=== PATIENT | female | born 1950 | race Caucasian/White ===

== ENCOUNTER 2017-05-11 22:24 | Inpatient (IN) ==
--- NOTE | 2017-05-11 22:37 | Emergency Department Report ---
General Adult HPI - General Stated complaint: Confusion Time Seen by Provider: 05/11/17 22:25 Source: patient, family, EMS Mode of arrival: ambulatory Limitations: altered mental status - History of Present Illness HPI narrative: Patient lives at assisted living in a local intermediate, for dementia. Her has been concerned of last 24 hours that she has had worsening confusion. Patient has not been seen recently by her primary care physician, but she was seen one week ago by Dr. Elda Pradhan for generalized low back pain. Patient has been was concerned because 2 days ago the patient forgot to take her evening diazepam, and after that stayed up all night. Last night the patient did take her diazepam slit 14 hours. Since that time the patient has been having worsening confusion and mild generalized weakness. Other than chronic low back pain, the patient has no current complaint. - Related Data Home Medications Medication Instructions Recorded Confirmed Citalopram Hydrobromide [Celexa] 10 mg PO PM #0 04/30/12 05/11/17 Levothyroxine Sodium 50 mcg PO DAILY #0 07/19/12 05/11/17 OLANZapine [Olanzapine] 1 tab PO HS #0 05/21/15 05/11/17 cetirizine 10 mg tablet 10 mg PO DAILY 30 Days 05/04/17 05/11/17 cyclobenzaprine 10 mg tablet 10 mg PO HS PRN 30 Days 05/04/17 05/11/17 diazepam 2 mg tablet 2 mg PO BID 15 Days 05/04/17 05/11/17 eluxadoline 100 mg tablet 100 mg PO BID 30 Days 05/04/17 05/11/17 meloxicam 15 mg tablet 15 mg PO DAILY 30 Days 05/04/17 05/11/17 montelukast 10 mg tablet 10 mg PO HS 90 Days 05/04/17 05/11/17 propranolol 40 mg tablet 40 mg PO DAILY 30 Days 05/04/17 05/11/17 ranitidine 150 mg tablet 150 mg PO BID 30 Days 05/04/17 05/11/17 Allergies Allergy/AdvReac Type Severity Reaction Status Date / Time dextromethorphan Allergy Unknown Verified 05/11/17 23:04 guaifenesin Allergy Unknown Verified 05/11/17 23:04 hydrocodone Allergy Unknown HIVES, Verified 05/11/17 23:04 SKIN RASH oxaprozin Allergy Unknown Verified 05/11/17 23:04 paromomycin Allergy Unknown Verified 05/11/17 23:02 potassium guaiacolsulfonate Allergy Unknown Verified 05/11/17 23:04 propoxyphene Allergy Unknown Verified 05/11/17 23:04 [From Darvocet-N] dextromethorphan HBr Allergy Unknown Uncoded 05/11/17 23:02 propoxyphene napsylate Allergy Unknown Uncoded 05/11/17 23:02 Review of Systems All systems: reviewed and negative except as stated PFSH Patient Stated Medical History Cataracts Yes Hypertension Yes Other Respiratory Yes: ALLERGIES Gastroesophageal Reflux Yes Disease Other GI Yes: IBS Other Musculoskeletal Yes: DEGENERATIVE JOINT DISEASE OF CERVICAL SPINE Schizophrenia Yes Clinic Medical History (Last Reviewed 05/05/17 @ 14:50 by Elda Pradhan MD) Allergic rhinitis (Chronic Medical) Benign hypertension (Chronic Medical) Cataract (Chronic Medical) Degenerative joint disease of cervical spine (Chronic Medical) GERD (gastroesophageal reflux disease) (Chronic Medical) Goiter (Chronic Medical) Hypothyroidism (Chronic Medical) Irritable bowel syndrome (Chronic Medical) Lumbago (Chronic Medical) Schizophrenia (Chronic Medical) Surgical History: L TKA; cataract; Family History: Family History (Last Reviewed 05/05/17 @ 14:50 by Elda Pradhan MD) Mother Breast CA Mother Cervical cancer Liver cancer HTN (hypertension) Depression Cancer of spine Colon cancer - Social History Smoking status: Never smoker Physical Exam - Limitations Limitations: no limitations - General General appearance: alert (although somewhat confused) - Normal Exams: Head:: Normocephalic without trauma Eyes:: Pupils are PERRLA w/ EOMI, No scleral icterus, irritation, or foreign bodies noted ENMT:: No facial trauma, nasal exudates, pharyngeal erythema, or exudates are noted Neck:: Full range of motion, without adenopathy, JVD, bruits or thyromegaly Chest/Respirations:: Clear all fuchs, with good airflow, and symmetry bilaterally Cardiovascular:: Regular rate and rhythm, without murmur or gallop, Pulses 2+ all extremities, capillary refill, <2 seconds all extremities Abdomen:: Bowel sounds positive, soft, non-tender, non-distended, no hepatosplenomegaly, masses or bruits noted Lymphatic:: No lymphadenopathy, or lymphedema noted Musculoskeletal:: No tenderness, or deformity noted, good range of motion, all extremities Integumentary:: No rashes, hives, or bruising noted, hair and nails, without abnormality Neurological:: Patient is alert, and oriented, cranial nerves, motor/sensory/ cerebellar, exams w/o gross deficits, to observation Psychiatric:: Patient exhibits, appropriate attention, emotion and affect Course Vital Signs Temperature 98.0 F 05/11/17 22:24 Pulse Rate 69 05/11/17 22:24 Respiratory Rate 12 05/11/17 22:24 Blood Pressure 174/84 H 05/11/17 22:24 Pulse Oximetry 97 05/11/17 22:24 Temperature 98.0 F 05/11/17 22:24 Pulse Rate 69 05/12/17 00:00 Respiratory Rate 12 05/11/17 22:24 Blood Pressure 177/84 H 05/12/17 00:00 Pulse Oximetry 98 05/12/17 00:00 Medical Decision Making - MDM Narrative Medical decision making narrative: Patient appears slightly dehydrated, with mild dry lips. Patient is given 1 L normal saline IV fluid bolus CBC - n CMP - n TSH - mildly elevated, consistent with the patient's diagnoses UA - n In speaking with the patient's family, they're quite concerned because the patient has had 3 successive nights of hallucinations, paranoid thinking, and wandering confusion. Patient lives with her alone, and he does not feel that she is safe at night any longer. [facility] nurse has evaluated the patient for possible [facility] admission - patient has been accepted to [facility] to Dr. Theron Moreno or schizophrenia unspecified/other psychotic disorder. - Lab Data Result diagrams: 05/11/17 10:50 05/11/17 10:50 Lab Results 05/11/17 05/11/17 05/11/17 Range/Units 10:50 10:50 23:23 WBC 10.7 (4.5-11.0) T/MM3 RBC 3.81 L (4.00-5.20) M/MM3 Hgb 12.2 (12-16) GM/DL Hct 37.0 (36-46) % MCV 97.1 (80-100) UM3 MCH 32.0 (26-34) UUG MCHC 33.0 (31-37) GM/DL RDW Std Deviation 44.8 (36.9-50.2) FL Plt Count 299 (130-400) T/MM3 MPV 9.5 (9.4-12.4) UM3 Immature Gran % (Auto) 0.3 (0.0-0.5) % Neut % (Auto) 50.1 (33-66) % Lymph % (Auto) 38.8 (23-45) % Thayer % (Auto) 9.0 (0-9.0) % Eos % (Auto) 0.9 (0-4) % Baso % (Auto) 0.9 (0-2) % Neut # 5.3 (1.8-7.7) T/MM3 Lymph # 4.1 (1-4.8) T/MM3 Thayer # 1.0 H (0-0.8) T/MM3 Eos # 0.1 (0-0.5) T/MM3 Baso # 0.1 (0-0.2) T/MM3 Abs Immat Gran (auto) 0.03 (0.00-0.03) T/MM3 Turbidity < 20 (0-20) Sodium 134 (134-144) MEQ/L Potassium 3.9 (3.6-5) MEQ/L Chloride 100 (98-107) MEQ/L Carbon Dioxide 26 (22-30) MEQ/L Anion Gap 8 (5-15) MEQ/L BUN 18.0 H (7-17) MG/DL Creatinine 1.0 (0.7-1.2) MG/DL GFR Calculation 55 BUN/Creatinine Ratio 18 (6-26) RATIO Glucose 107 (65-110) MG/DL Calculated Osmolality 260 L (261-280) MOSM/KG Calcium 8.9 (8.4-10.2) MG/DL Total Bilirubin 0.40 (0.20-1.30) MG/DL Conjugated Bilirubin 0.00 (0.00-0.30) MG/DL Unconjugated Bilirubin 0.10 (0.00-11.10) MG/DL Icterus Index < 2 (0-7) AST 24 (14-36) U/L ALT 37 (9-52) U/L Alkaline Phosphatase 56 (38-126) U/L Total Protein 6.3 (6.3-8.2) G/DL Albumin 3.9 (3.5-5.0) G/DL Globulin 2.4 (2.4-3.6) G/DL Albumin/Globulin Ratio 1.6 (1.1-2.2) RATIO TSH 6.21 H (0.47-4.68) MIU/L Specimen Hemolysis < 15 (0-25) Ur Collection Type Urine, clean catch Urine Color Yellow (YELLOW) Urine Clarity Clear Urine pH 5.5 (5.0-8.0) Ur Specific [place]well <=1.005 L (1.015-1.025) Urine Protein Negative (NEGATIVE) Urine Glucose (UA) Negative (NEGATIVE) Urine Ketones Negative (NEGATIVE) Urine Occult Blood Negative (NEGATIVE) Urine Nitrate Negative (NEGATIVE) Urine Bilirubin Negative (NEGATIVE) Urine Urobilinogen 0.2 (NORMAL) EU/DL Ur Leukocyte Esterase Negative (NEGATIVE) Urinalysis Comment Microscopic not ind. Disposition Clinical Impression: Schizophrenia spectrum disorder with psychotic disorder type not yet determined Disposition: 65 To [facility] Condition: Stable Prescriptions: No Action Citalopram Hydrobromide [Celexa] 10 mg PO PM #0 Levothyroxine Sodium 50 mcg PO DAILY #0 OLANZapine [Olanzapine] 1 tab PO HS #0 diazepam 2 mg tablet 2 mg PO BID 15 Days ranitidine 150 mg tablet 150 mg PO BID 30 Days cyclobenzaprine 10 mg tablet 10 mg PO HS PRN 30 Days PRN Reason: Spasms meloxicam 15 mg tablet 15 mg PO DAILY 30 Days eluxadoline 100 mg tablet 100 mg PO BID 30 Days montelukast 10 mg tablet 10 mg PO HS 90 Days cetirizine 10 mg tablet 10 mg PO DAILY 30 Days propranolol 40 mg tablet 40 mg PO DAILY 30 Days Referrals: Leesa Wilde DO [Primary Care Provider] - - Seen By: physician
[2017-05-11] MEDS ORDERED: NS 1,000 ML IV ONE (22:53)
[2017-05-11] MEDS ORDERED: SALINE FLUSH 10ml SYRINGE IVF PRN (23:03)
[2017-05-12] MEDS ORDERED: HALOPERIDOL 0.5 MG TABLET PO PRN (03:46)
[2017-05-12] MEDS ORDERED: HALOPERIDOL 5 MG/ML INJECTION IM PRN (03:46)
[2017-05-12] MEDS ORDERED: LORazepam 0.5 MG TABLET PO PRN (03:46)
[2017-05-12 06:51] VITALS: BMI 28.5
[2017-05-12] MEDS: LEVOTHYROXINE 50 MCG TABLET PO SCH (07:53)
[2017-05-12] MEDS: MELOXICAM 15 MG TABLET PO SCH (08:51)
[2017-05-12] MEDS: PROPRANOLOL 20 MG TABLET PO SCH (08:51)
[2017-05-12] MEDS: CETIRIZINE 10 MG TABLET PO SCH (08:52)
[2017-05-12] MEDS ORDERED: DIAZEPAM 2 MG TABLET PO SCH (09:00)
--- NOTE | 2017-05-12 09:30 | History & Physical Report ---
<Saray Pulliam V - Last Filed: 05/12/17 09:27> History of Present Illness Date: 05/12/17 Chief complaint: Auditory hallucinations HPI: Tonia is a pleasant 66-year-old female who presented to the emergency room last evening for acute evaluation of mental status changes. She reports that for the last 2-3 days. She has had auditory hallucinations, thinking that there were people outside her apartment in the hallway talking about her. She reports that she was concerned that the police were there and that they will to take her to shelter. She does have a known history of schizophrenia. Given concern for status changes. brought patient to the emergency room for further acute evaluation and treatment. Basic laboratory studies were obtained. CBC was found to be unremarkable. Chemistry panel unremarkable. Urinalysis was normal. Emergency room physician did report that patient had missed. Diazepam medications over the last 2 days, which consequently kept patient up all night. Given these acute changes. Patient was evaluated by the [facility] unit and was accepted for admission for further psychiatric evaluation and treatment. Tonia is seen this morning for initial medical consultation. She is alert and pleasant. She does verbalize auditory hallucinations and recognizes that they are abnormal. She also reports has been having lumbar back pain since December. She was seen by Dr. Pradhan on May 02, 2017. It was recommended the patient obtain an MRI and possible physical therapy for ongoing treatment. Review of Systems All systems: reviewed and no additional remarkable complaints except as stated - Musculoskeletal Musculoskeletal: Present: as per HPI, back pain (lumbar) - Psychiatric Psychiatric: Present: as per HPI, auditory hallucinations, behavioral changes [facility] Patient Stated Medical History Allergic rhinitis ALLERGIES Chronic colitis, IBS Diabetes Benign hypertension Cataract Degenerative joint disease of cervical spine GERD (gastroesophageal reflux disease) Goiter Hypothyroidism Lumbago Schizophrenia Migraine headaches History of dysplastic tubular adenoma Surgical History: Left total knee. Right total knee. . Colonoscopy-. Cataract extraction Family History: Father- colon cancer, lung cancer Mother- Cervical cancer Liver cancer HTN (hypertension) Depression Cancer of spine Colon cancer - Social History Smoking status: Never smoker Substance use type: does not use Alcohol intake frequency: does not drink Household members: spouse Current residence: Apartment/Private Home Social history: PCP- Dr Wilde Medications Home Medications Medication Instructions Recorded Confirmed Type Citalopram Hydrobromide [Celexa] 10 mg PO PM #0 04/30/12 05/11/17 History Levothyroxine Sodium 50 mcg PO DAILY #0 07/19/12 05/11/17 History OLANZapine [Olanzapine] 1 tab PO HS #0 05/21/15 05/11/17 History cetirizine 10 mg tablet 10 mg PO DAILY 30 Days 05/04/17 05/11/17 History cyclobenzaprine 10 mg tablet 10 mg PO HS PRN 30 Days 05/04/17 05/11/17 History diazepam 2 mg tablet 1 mg PO BID 15 Days 05/04/17 05/12/17 History eluxadoline 100 mg tablet 100 mg PO BID 30 Days 05/04/17 05/11/17 History meloxicam 15 mg tablet 15 mg PO DAILY 30 Days 05/04/17 05/11/17 History montelukast 10 mg tablet 10 mg PO HS 90 Days 05/04/17 05/11/17 History propranolol 40 mg tablet 40 mg PO DAILY 30 Days 05/04/17 05/11/17 History ranitidine 150 mg tablet 150 mg PO BID 30 Days 05/04/17 05/11/17 History Lactobacillus Acidophilus 1 each PO DAILY 05/12/17 05/12/17 History [Probiotic] Allergies Allergy/AdvReac Type Severity Reaction Status Date / Time dextromethorphan Allergy Unknown Verified 05/11/17 23:04 guaifenesin Allergy Unknown Verified 05/11/17 23:04 hydrocodone Allergy Unknown HIVES, Verified 05/11/17 23:04 SKIN RASH oxaprozin Allergy Unknown Verified 05/11/17 23:04 paromomycin Allergy Unknown Verified 05/11/17 23:02 potassium guaiacolsulfonate Allergy Unknown Verified 05/11/17 23:04 propoxyphene Allergy Unknown Verified 05/11/17 23:04 [From Darandreeat-N] dextromethorphan HBr Allergy Unknown Uncoded 05/11/17 23:02 propoxyphene napsylate Allergy Unknown Uncoded 05/11/17 23:02 Exam Vital Signs: Temperature 97.0 F 05/12/17 07:57 Pulse Rate 80 05/12/17 07:57 Respiratory Rate 18 05/12/17 07:57 Blood Pressure 142/92 H 05/12/17 07:57 Pulse Oximetry 97 05/12/17 07:57 Oxygen Delivery Method Room Air Height: 1.42 m Weight: 57.7 kg Body Mass Index: 28.5 - Constitutional Present: no acute distress, well nourished, well developed - Routine HEENT Exam Head: Present: normocephalic, atraumatic Eye: Present: EOMI, PERRL ENT: Present: mucous membranes moist, dentition normal - Routine Neck Exam Present: supple, full ROM - Routine Respiratory Exam Present: CTA bilaterally. Absent: wheezes - Routine Cardiovascular Exam Present: RRR, S1, S2, no murmur. Absent: murmur - Routine Abdominal Exam Present: soft, normoactive bowel sounds, non distended. Absent: tenderness - Routine Extremities Exam Present: no edema, non tender, full ROM, normal capillary refill - Routine Back/Spine/Pelvis Exam Back/Spine: Present: full ROM, paraspinal tenderness (lumbar) - Routine Skin Exam Present: dry, warm - Routine Neurological Exam Present: alert, oriented X3, CN II-XII intact, moving all extremities, vision grossly intact, hearing grossly intact, normal speech. Absent: sensory deficit , motor deficit - Routine Psychiatric Exam Present: normal affect, cooperative Results - Labs CBC & Chem 7: 05/11/17 22:50 05/11/17 22:50 Assessment and Plan (1) Schizophrenia spectrum disorder with psychotic disorder type not yet determined Current visit: Yes Status: Acute (2) Auditory hallucinations Current visit: Yes Status: Acute Assessment and Plan: Assessment Benign essential Hypertension ALLERGIC rhinitis Asthma GERD Diabetes Hyperlipidemia Hypothyroidism. Irritable bowel syndrome with irritable colitis-chronic Osteoarthritis. History of migraine headaches Plan Agree with admission to the [facility] unit for further psychiatric evaluation and treatment Appears that diabetes is diet controlled. Monitor Accu-Cheks as needed. Monitor blood pressure, this morning 142/92. Continue with Inderal Recommend continuing Mobic 15 milligrams daily for ongoing back pain. Continue Viberzi for chronic IBS symptoms Encourage patient to participate in unit activities and provide a safe environment. At time of discharge medical care will return to primary care provider, Dr. Wilde The hospitalist services will continue to follow patient medically manage her existing comorbidities during her stay in the [facility] unit Sepsis Assessment - Evaluation Sepsis screening result: No Definite Risk Hospital Course Summary Disclaimer: The visit summary below is not to be considered part of the above Progress Note. Hospital Course: 07/27/17 inital admission Agree with admission to the [facility] unit for further psychiatric evaluation and treatment Appears that diabetes is diet controlled. Monitor Accu-Cheks as needed. Monitor blood pressure, this morning 142/92. Continue with Inderal Recommend continuing Mobic 15 milligrams daily for ongoing back pain. Continue Viberzi for chronic IBS symptoms Encourage patient to participate in unit activities and provide a safe environment. At time of discharge medical care will return to primary care provider, Dr. Wilde The hospitalist services will continue to follow patient medically manage her existing comorbidities during her stay in the [facility] <RoseLesley L - Last Filed: 05/12/17 18:12> History of Present Illness Date: 05/12/17 [facility] Patient Stated Medical History Cataracts Yes Hypertension Yes Other Respiratory Yes: ALLERGIES Gastroesophageal Reflux Yes Disease Other GI Yes: IBS Other Musculoskeletal Yes: DEGENERATIVE JOINT DISEASE OF CERVICAL SPINE Schizophrenia Yes Clinic Medical History (Last Updated 05/12/17 @ 10:03 by Saray Pulliam APRN) Allergic rhinitis (Chronic Medical) Benign hypertension (Chronic Medical) Cataract (Chronic Medical) Degenerative joint disease of cervical spine (Chronic Medical) GERD (gastroesophageal reflux disease) (Chronic Medical) Goiter (Chronic Medical) Hypothyroidism (Chronic Medical) Irritable bowel syndrome (Chronic Medical) Lumbago (Chronic Medical) Schizophrenia (Chronic Medical) Family History: Family History (Last Reviewed 05/05/17 @ 14:50 by Elda Pradhan MD) Mother Breast CA Mother Cervical cancer Liver cancer HTN (hypertension) Depression Cancer of spine Colon cancer Exam Vital Signs: Temperature 97.2 F 05/12/17 15:00 Pulse Rate 63 05/12/17 15:00 Respiratory Rate 20 05/12/17 15:00 Blood Pressure 150/78 H 05/12/17 15:00 Pulse Oximetry 97 05/12/17 15:00 Oxygen Delivery Method Room Air Height: 1.42 m Weight: 57.7 kg Results - Labs CBC & Chem 7: 05/11/17 22:50 05/11/17 22:50 Assessment and Plan (1) Schizophrenia spectrum disorder with psychotic disorder type not yet determined Current visit: Yes Status: Acute (2) Auditory hallucinations Current visit: Yes Status: Acute Assessment and Plan: I have independently evaluated and examined this patient. I reviewed the chart, the patient's history, and the [employer]PERATOR/PA's documented findings as above. We discussed and formulated the assessment and plan as above with additions as below: Mrs. Canales was seen resting in the day room. She denied any concerns at the time of my assessment but acknowledged that she has been hearing voices as previously noted. She describes some radicular pain in the left leg to the foot and recently had LS spine films done by Dr. Pradhan demonstrating degenerative changes in the lower thoracic spine and retrolisthesis at L4-L5. MRI is being considered. Patient denies difficulty ambulating as a result of the left leg pain and has not had falls. Examination demonstrates the patient to be alert and cooperative. Respirations are nonlabored in cardiac rhythm regular. Neurological exam is nonfocal his previously described without sensory loss in the left ankle or foot. Motor tone is normal and power is symmetric in the lower extremities. No tremors are present. No additional recommendations at this time. We'll attempt to clarify if A1c has been done in the recent past at [facility]. Hospital Course Summary Disclaimer: The visit summary below is not to be considered part of the above Progress Note.
[2017-05-12] MEDS ORDERED: PNEUMOCOCCAL 23 VACCINE 0.5ml INJECTION IM ONE (12:15)
[2017-05-12] MEDS: RANITIDINE 150 MG TABLET PO SCH ×2 (12:21→20:22)
[2017-05-12] MEDS: ELUXADOLINE 100 MG PO SCH ×2 (12:22→20:24)
[2017-05-12] MEDS ORDERED: PNEUMOCOCCAL VAC ADMIN CHARGE INJ ONE (16:00)
--- NOTE | 2017-05-12 18:59 | 24 Hour Neuropsychiatic Eval ---
Date of Admission: 05/12/17 03:19 Chief complaint: "I was paranoid" History of Present Illness: HPI: 66 Y/O CF with a hx of delusional disorder, depression and anxiety admitted for increasing confusion and some paranoia. Pt states recently she has been having a hard time sleeping and felt the police were "coming to arrest me". She states this is now improved although still there. She reports some depression but feels it is mild. Denies any S/I. STRESSORS: Pt states she ran out of her Valium over the last couple of days and feels this contributed to her symptoms. PSYCH ROS: Pt reports feeling depressed but feels it is mild. She reports her paranoia is her biggest issue and states she feels it is now improving. She denies any S/I or AH. Denies any hx of lan. PAST PSYCH: Pt states she has had 2 previous admits the most recent was 8 years ago in [place] for similar symptoms. 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 She denies ever trying to harm herself. She is currently on Zyprexa, Valium and Celexa. [facility] Patient Stated Medical History Cataracts Yes Hypertension Yes Other Respiratory Yes: ALLERGIES Gastroesophageal Reflux Yes Disease Other GI Yes: IBS Other Musculoskeletal Yes: DEGENERATIVE JOINT DISEASE OF CERVICAL SPINE Schizophrenia Yes Clinic Medical History (Last Updated 05/12/17 @ 10:03 by Saray Pulliam APRN) Allergic rhinitis (Chronic Medical) Benign hypertension (Chronic Medical) Cataract (Chronic Medical) Degenerative joint disease of cervical spine (Chronic Medical) GERD (gastroesophageal reflux disease) (Chronic Medical) Goiter (Chronic Medical) Hypothyroidism (Chronic Medical) Irritable bowel syndrome (Chronic Medical) Lumbago (Chronic Medical) Schizophrenia (Chronic Medical) Surgical History: Left total knee. Right total knee. . Colonoscopy-. Cataract extraction Family History: Family History (Last Reviewed 05/05/17 @ 14:50 by Elda Pradhan MD) Mother Breast CA Mother Cervical cancer Liver cancer HTN (hypertension) Depression Cancer of spine Colon cancer - Social History Smoking status: Never smoker Current residence: Apartment/Private Home Review of Systems - Psychiatric Psychiatric: Present: behavioral changes, depression, paranoia Mental Status Exam Vitals: Last Vital Signs Temp 97.2 F 05/12/17 15:00 Pulse 63 05/12/17 15:00 Resp 20 05/12/17 15:00 BP 150/78 H 05/12/17 15:00 Pulse Ox 97 05/12/17 15:00 Height: 1.42 m Weight: 57.7 kg - Mental Status Exam Muscle Strength/Tone: Normal Dressing: Casual Grooming: Good Attitude: Cooperative Motor Activity: Normal Eye Contact: Good Speech: Normal Volume: Normal Rhythm: Appropriate Rhythm Orientation: Oriented X4 Mood: Neutral Affect: Sad Rate of Thoughts: Delayed Thought Organization: [place] Associations: Intact Abstract Reasoning: Poor abstract reasoning Thought Content: Paranoia Perception/Psychotic: Hx psychosis, not current Fund of Knowledge: Poor fund of knowledge Memory: Poor-immediate Suicidal Ideation: None Homicidal Ideation: None Insight: Fair Judgement: Fair Impulse Control: Fair - Laboratory Result Diagrams: 05/11/17 22:50 05/11/17 22:50 Assessment and Plan (1) Delusional disorder Current visit: Yes Status: Acute (2) MDD (major depressive disorder), recurrent episode, moderate Current visit: Yes Status: Acute (3) Intellectual disability Problem details: Mild Current visit: Yes Status: Acute Will continue home meds and increase Zyprexa to 10mg at HS
[2017-05-12] MEDS: ACETAMINOPHEN 325 MG TABLET PO PRN (19:28)
[2017-05-12] MEDS: MONTELUKAST 10 MG TABLET PO SCH ×3 (19:52→21:39)
[2017-05-12] MEDS: DIAZEPAM 2 MG TABLET PO SCH (20:23)
[2017-05-12] MEDS: OLANZapine 10 MG TABLET PO SCH (20:23)
[2017-05-12] MEDS: CITALOPRAM 10 MG TABLET PO SCH (20:23)
[2017-05-13] MEDS: LEVOTHYROXINE 50 MCG TABLET PO SCH (06:41)
[2017-05-13] MEDS: RANITIDINE 150 MG TABLET PO SCH ×2 (10:59→19:52)
[2017-05-13] MEDS: DIAZEPAM 2 MG TABLET PO SCH ×2 (10:59→19:51)
[2017-05-13] MEDS: CETIRIZINE 10 MG TABLET PO SCH (10:59)
[2017-05-13] MEDS: MELOXICAM 15 MG TABLET PO SCH (11:00)
[2017-05-13] MEDS: ELUXADOLINE 100 MG PO SCH ×2 (11:01→19:53)
[2017-05-13] MEDS: LIDOCAINE 5% PATCH TOP SCH (11:02)
[2017-05-13] MEDS: PROPRANOLOL 20 MG TABLET PO SCH (11:31)
--- NOTE | 2017-05-13 11:54 | XRay Report ---
INDICATION: mental status change PROCEDURE: CHEST 2-VIEWS UPRIGHT (PA & LAT) Encounter: Initial COMPARISON: June 13, 2009 FINDINGS: The lungs are clear without evidence of focal abnormal airspace opacity. There is no pleural effusion or pneumothorax. The heart size, mediastinal contours and pulmonary vascularity are within normal limits. There is no significant skeletal abnormality. IMPRESSION: No acute cardiopulmonary disease. .
--- NOTE | 2017-05-13 11:57 | CT Scan Report ---
Indication: mental status change PROCEDURE: CT head/brain wo con: Encounter: Initial Comparison: None Technique: Axial CT images through the head were performed without contrast. Iterative Reconstruction dose reducing technique was utilized. FINDINGS: The ventricles are of normal size, shape, and contour for the patient's age. There are scattered areas of low attenuation in the white matter which most likely represent changes from chronic microvascular ischemia. The brainstem, cerebellum, and cerebral hemispheres otherwise have a normal morphology and CT attenuation. There is no evidence of midline displacement. No hemorrhage, signs of acute territorial stroke, mass effect, mass lesions, or edema is evident. The visualized portions of the skull base, midface, and calvarium demonstrate no abnormality. The paranasal sinuses are well aerated and free of significant disease. The tympanic and mastoid cavities appear normal. IMPRESSION: No acute intracranial abnormality or hemorrhage. .
[2017-05-13] MEDS: ACETAMINOPHEN 325 MG TABLET PO PRN (16:39)
--- NOTE | 2017-05-13 16:55 | Neuropsych Progress Note ---
[facility] Subjective Date: 05/13/17 - Sujective/Severity of Illness Medications: Acetaminophen (Tylenol) 650 mg PO Q5H PRN PRN Reason: Pain Last Admin: 05/13/17 16:39 Dose: 650 mg Cetirizine HCl (Zyrtec) 10 mg PO DAILY [facility] Last Admin: 05/13/17 10:59 Dose: 10 mg Citalopram Hydrobromide (Celexa) 10 mg PO PM [facility] Last Admin: 05/12/17 20:23 Dose: 10 mg Diazepam (Valium) 1 mg PO BID [facility] Last Admin: 05/13/17 10:59 Dose: 1 mg Haloperidol (Haldol) 0.5 mg PO Q6H PRN PRN Reason: Extreme agitation Haloperidol Lactate (Haldol) 0.5 mg IM Q6H PRN PRN Reason: Extreme agitation Levothyroxine Sodium (Synthroid) 50 mcg PO ACB [facility] Last Admin: 05/13/17 06:41 Dose: 50 mcg Lidocaine (Lidoderm) 1 patch TOP DAILY [facility] Last Admin: 05/13/17 11:02 Dose: 1 patch Lidocaine HCl/Dextrose (Lidoderm Patch Removal) 1 removal TOP 2099 [facility] Lorazepam (Ativan) 0.5 mg PO Q6H PRN PRN Reason: Extreme agitation Lorazepam (Ativan Inj) 0.5 mg IM Q6H PRN PRN Reason: Extreme agitation Meloxicam (Mobic) 15 mg PO DAILY [facility] Last Admin: 05/13/17 11:00 Dose: 15 mg Montelukast Sodium (Singulair) 10 mg PO HS [facility] Last Admin: 05/12/17 21:39 Dose: Not Given --Pom--(Eluxadoline ([Viberzi] 100 Mg)) 100 mg PO BID [facility] Last Admin: 05/13/17 11:01 Dose: 100 mg Olanzapine (Zyprexa) 10 mg PO 2100 [facility] Last Admin: 05/12/17 20:23 Dose: 10 mg Propranolol HCl (Inderal) 40 mg PO DAILY [facility] Last Admin: 05/13/17 11:31 Dose: 40 mg Ranitidine HCl (Zantac) 150 mg PO BID [facility] Last Admin: 05/13/17 10:59 Dose: 150 mg Subjective: Pt seen and chart examined. Nursing reports pt is doing well. Sleeping well and has a good appetite. On face to face the pt states she is feeling better. Feels back to baseline. Mood improved and no psychotic symptoms. Tolerating meds. Denies S/I. Start Time: 16:00 Stop Time: 16:15 Mental Status Exam Vitals: Last Vital Signs Temp 97.3 F 05/13/17 16:39 Pulse 71 05/13/17 16:39 Resp 16 05/13/17 16:39 BP 162/76 H 05/13/17 16:39 Pulse Ox 98 05/13/17 16:39 Height: 1.42 m Weight: 57.6 kg - Mental Status Exam Muscle Strength/Tone: Normal Dressing: Casual Grooming: Good Attitude: Cooperative Motor Activity: Normal Eye Contact: Good Speech: Normal Volume: Normal Rhythm: Appropriate Rhythm Orientation: Oriented X4 Mood: Neutral Rate of Thoughts: Delayed Thought Organization: [place] Associations: Intact Abstract Reasoning: Poor abstract reasoning Thought Content: Paranoia Perception/Psychotic: Hx psychosis, not current Fund of Knowledge: Poor fund of knowledge Memory: Poor-immediate Suicidal Ideation: None Homicidal Ideation: None Insight: Fair Judgement: Fair Impulse Control: Fair - Laboratory Result Diagrams: 05/11/17 22:50 05/11/17 22:50 Assessment and Plan (1) Delusional disorder Current visit: Yes Status: Acute (2) MDD (major depressive disorder), recurrent episode, moderate Current visit: Yes Status: Acute (3) Intellectual disability Problem details: Mild Current visit: Yes Status: Acute Hospital Course Summary Disclaimer: The visit summary below is not to be considered part of the above Progress Note. Hospital Course: 05/12/17 inital admission Agree with admission to the [facility] for further psychiatric evaluation and treatment Appears that diabetes is diet controlled. Monitor Accu-Cheks as needed. Monitor blood pressure, this morning 142/92. Continue with Inderal Recommend continuing Mobic 15 milligrams daily for ongoing back pain. Continue Viberzi for chronic IBS symptoms Encourage patient to participate in unit activities and provide a safe environment. At time of discharge medical care will return to primary care provider, Dr. Wilde The hospitalist services will continue to follow patient medically manage her existing comorbidities during her stay in the [facility] 05/13/17 16:54 Continue current care
[2017-05-13] MEDS: OLANZapine 10 MG TABLET PO SCH (19:51)
[2017-05-13] MEDS: MONTELUKAST 10 MG TABLET PO SCH (19:52)
[2017-05-13] MEDS: LIDOCAINE PATCH REMOVAL TOP SCH (19:53)
[2017-05-13] MEDS: CITALOPRAM 10 MG TABLET PO SCH (19:54)
--- NOTE | 2017-05-13 20:28 | Progress Note ---
Subjective: Patient seen briefly in the day room. She reports doing well. Objective Vital signs: Temperature 97.1 F 05/13/17 19:20 Pulse Rate 76 05/13/17 19:20 Respiratory Rate 16 05/13/17 19:20 Blood Pressure 133/72 05/13/17 19:20 Pulse Oximetry 97 05/13/17 19:20 Oxygen Delivery Method Room Air NAD, cooperative, pleasant Blood pressures earlier today 172/92, 162/76 Weight: 57.6 kg Results - Labs CBC & Chem 7: 05/11/17 22:50 05/11/17 22:50 Labs: A1c 5.3, B-12 310, folic acid 16.2, TSH 6.21, RPR negative. Lipids pending Assessment and Plan (1) Schizophrenia spectrum disorder with psychotic disorder type not yet determined Current visit: Yes Status: Acute (2) Auditory hallucinations Current visit: Yes Status: Acute Assessment and Plan: Assessment: Schizophrenia Auditory hallucinations Benign essential Hypertension Low vitamin B-12 level Asthma GERD Diabetes Hyperlipidemia Hypothyroidism. Irritable bowel syndrome with irritable colitis-chronic Osteoarthritis. History of migraine headaches Pressures modestly elevated until this afternoon-continue to follow, currently not on medication for hypertension. May require initiation of therapy if systolic blood pressures continues to run above 150 on a regular basis. Blood pressure appears to be well-controlled on review of recent outpatient records. TSH slightly increased, was within normal limits when checked as an outpatient in November of this year and last April. No modification in levothyroxine dose at this time. B 12 level low-methylmalonic acid to be drawn and oral B-12 replacement to be started. A1c normal-does not require monitoring of blood sugars. Patient advised of lab findings. Sepsis Assessment - Evaluation Sepsis screening result: No Definite Risk Hospital Course Summary Disclaimer: The visit summary below is not to be considered part of the above Progress Note. Hospital Course: 05/12/17 inital admission Agree with admission to the [facility] for further psychiatric evaluation and treatment Appears that diabetes is diet controlled. Monitor Accu-Cheks as needed. Monitor blood pressure, this morning 142/92. Continue with Inderal Recommend continuing Mobic 15 milligrams daily for ongoing back pain. Continue Viberzi for chronic IBS symptoms Encourage patient to participate in unit activities and provide a safe environment. At time of discharge medical care will return to primary care provider, Dr. Wilde The hospitalist services will continue to follow patient medically manage her existing comorbidities during her stay in the [facility] 05/13/17 16:54 Continue current care 05/13/17 20:38-Rose Pressures modestly elevated until this afternoon-continue to follow, currently not on medication for hypertension. May require initiation of therapy if systolic blood pressures continues to run above 150 on a regular basis. Blood pressure appears to be well-controlled on review of recent outpatient records. TSH slightly increased, was within normal limits when checked as an outpatient in November of this year and last April. No modification in levothyroxine dose at this time. B 12 level low-methylmalonic acid to be drawn and oral B-12 replacement to be started. A1c normal-does not require monitoring of blood sugars.
[2017-05-14] MEDS: LEVOTHYROXINE 50 MCG TABLET PO SCH (05:38)
[2017-05-14] MEDS: ELUXADOLINE 100 MG PO SCH ×2 (09:17→20:08)
[2017-05-14] MEDS: CETIRIZINE 10 MG TABLET PO SCH (09:18)
[2017-05-14] MEDS: RANITIDINE 150 MG TABLET PO SCH ×2 (09:18→20:07)
[2017-05-14] MEDS: CYANOCOBALAMIN (B-12) 500mcg TABLET PO SCH (09:19)
[2017-05-14] MEDS: DIAZEPAM 2 MG TABLET PO SCH ×2 (09:20→20:07)
[2017-05-14] MEDS: MELOXICAM 15 MG TABLET PO SCH (09:21)
[2017-05-14] MEDS: PROPRANOLOL 20 MG TABLET PO SCH (09:21)
[2017-05-14] MEDS: LIDOCAINE 5% PATCH TOP SCH (09:21)
--- NOTE | 2017-05-14 11:06 | Neuropsych Progress Note ---
[facility] Subjective Date: 05/14/17 - Sujective/Severity of Illness Medications: Acetaminophen (Tylenol) 650 mg PO Q5H PRN PRN Reason: Pain Last Admin: 05/13/17 16:39 Dose: 650 mg Cetirizine HCl (Zyrtec) 10 mg PO DAILY [facility] Last Admin: 05/14/17 09:18 Dose: 10 mg Citalopram Hydrobromide (Celexa) 10 mg PO PM [facility] Last Admin: 05/13/17 19:54 Dose: 10 mg Cyanocobalamin (Vit. B-12) 1,000 mcg PO DAILY [facility] Last Admin: 05/14/17 09:19 Dose: 1,000 mcg Diazepam (Valium) 1 mg PO BID [facility] Last Admin: 05/14/17 09:20 Dose: 1 mg Haloperidol (Haldol) 0.5 mg PO Q6H PRN PRN Reason: Extreme agitation Haloperidol Lactate (Haldol) 0.5 mg IM Q6H PRN PRN Reason: Extreme agitation Levothyroxine Sodium (Synthroid) 50 mcg PO ACB [facility] Last Admin: 05/14/17 05:38 Dose: 50 mcg Lidocaine (Lidoderm) 1 patch TOP DAILY [facility] Last Admin: 05/14/17 09:21 Dose: 1 patch Lidocaine HCl/Dextrose (Lidoderm Patch Removal) 1 removal TOP 2099 [facility] Last Admin: 05/13/17 19:53 Dose: 1 removal Lorazepam (Ativan) 0.5 mg PO Q6H PRN PRN Reason: Extreme agitation Lorazepam (Ativan Inj) 0.5 mg IM Q6H PRN PRN Reason: Extreme agitation Meloxicam (Mobic) 15 mg PO DAILY [facility] Last Admin: 05/14/17 09:21 Dose: 15 mg Montelukast Sodium (Singulair) 10 mg PO HS [facility] Last Admin: 05/13/17 19:52 Dose: 10 mg --Pom--(Eluxadoline ([Viberzi] 100 Mg)) 100 mg PO BID [facility] Last Admin: 05/14/17 09:17 Dose: 100 mg Olanzapine (Zyprexa) 10 mg PO 2100 [facility] Last Admin: 05/13/17 19:51 Dose: 10 mg Propranolol HCl (Inderal) 40 mg PO DAILY [facility] Last Admin: 05/14/17 09:21 Dose: 40 mg Ranitidine HCl (Zantac) 150 mg PO BID [facility] Last Admin: 05/14/17 09:18 Dose: 150 mg Subjective: Pt seen and chart examined. Nursing reports pt is doing well. Sleeping well and has a good appetite. No behaviors noted. On face to face the pt states she feels she is back to her old self. She reports her mood is stable and she denies any S/I. Denies any delusions. Tolerating meds Start Time: 10:00 Stop Time: 10:15 Mental Status Exam Vitals: Last Vital Signs Temp 98.2 F 05/14/17 07:45 Pulse 84 05/14/17 07:45 Resp 16 05/14/17 07:45 BP 150/86 H 05/14/17 07:45 Pulse Ox 99 05/14/17 07:45 Height: 1.42 m Weight: 57.6 kg - Mental Status Exam Muscle Strength/Tone: Normal Dressing: Casual Grooming: Good Attitude: Cooperative Motor Activity: Normal Eye Contact: Good Speech: Normal Volume: Normal Rhythm: Appropriate Rhythm Orientation: Oriented X4 Mood: Neutral Rate of Thoughts: Delayed Thought Organization: [place] Associations: Intact Abstract Reasoning: Poor abstract reasoning Thought Content: Paranoia Perception/Psychotic: Hx psychosis, not current Fund of Knowledge: Poor fund of knowledge Memory: Poor-immediate Suicidal Ideation: None Homicidal Ideation: None Insight: Fair Judgement: Fair Impulse Control: Fair - Laboratory Result Diagrams: 05/11/17 22:50 05/11/17 22:50 Assessment and Plan (1) Delusional disorder Current visit: Yes Status: Acute (2) MDD (major depressive disorder), recurrent episode, moderate Current visit: Yes Status: Acute (3) Intellectual disability Problem details: Mild Current visit: Yes Status: Acute Hospital Course Summary Disclaimer: The visit summary below is not to be considered part of the above Progress Note. Hospital Course: 05/12/17 inital admission Agree with admission to the [facility] for further psychiatric evaluation and treatment Appears that diabetes is diet controlled. Monitor Accu-Cheks as needed. Monitor blood pressure, this morning 142/92. Continue with Inderal Recommend continuing Mobic 15 milligrams daily for ongoing back pain. Continue Viberzi for chronic IBS symptoms Encourage patient to participate in unit activities and provide a safe environment. At time of discharge medical care will return to primary care provider, Dr. Wilde The hospitalist services will continue to follow patient medically manage her existing comorbidities during her stay in the [facility] 05/13/17 16:54 Continue current care 05/13/17 20:38-Rose Pressures modestly elevated until this afternoon-continue to follow, currently not on medication for hypertension. May require initiation of therapy if systolic blood pressures continues to run above 150 on a regular basis. Blood pressure appears to be well-controlled on review of recent outpatient records. TSH slightly increased, was within normal limits when checked as an outpatient in November of this year and last April. No modification in levothyroxine dose at this time. B 12 level low-methylmalonic acid to be drawn and oral B-12 replacement to be started. A1c normal-does not require monitoring of blood sugars. 05/14/17 11:06 Continue current care
[2017-05-14] MEDS: CITALOPRAM 10 MG TABLET PO SCH (20:07)
[2017-05-14] MEDS: MONTELUKAST 10 MG TABLET PO SCH (20:07)
[2017-05-14] MEDS: OLANZapine 10 MG TABLET PO SCH (20:08)
[2017-05-14] MEDS: LIDOCAINE PATCH REMOVAL TOP SCH (20:10)
[2017-05-15] MEDS: LEVOTHYROXINE 50 MCG TABLET PO SCH (08:14)
[2017-05-15] MEDS: PROPRANOLOL 20 MG TABLET PO SCH (08:15)
[2017-05-15] MEDS: ELUXADOLINE 100 MG PO SCH ×2 (08:15→20:05)
[2017-05-15] MEDS: DIAZEPAM 2 MG TABLET PO SCH ×2 (08:16→20:04)
[2017-05-15] MEDS: CYANOCOBALAMIN (B-12) 500mcg TABLET PO SCH (08:16)
[2017-05-15] MEDS: MELOXICAM 15 MG TABLET PO SCH (08:16)
[2017-05-15] MEDS: RANITIDINE 150 MG TABLET PO SCH ×2 (08:17→20:04)
[2017-05-15] MEDS: LIDOCAINE 5% PATCH TOP SCH (08:17)
[2017-05-15] MEDS: CETIRIZINE 10 MG TABLET PO SCH (08:17)
--- NOTE | 2017-05-15 11:05 | Neuropsych Progress Note ---
[facility] Subjective Date: 05/15/17 - Sujective/Severity of Illness Medications: Acetaminophen (Tylenol) 650 mg PO Q5H PRN PRN Reason: Pain Last Admin: 05/13/17 16:39 Dose: 650 mg Cetirizine HCl (Zyrtec) 10 mg PO DAILY [facility] Last Admin: 05/15/17 08:17 Dose: 10 mg Citalopram Hydrobromide (Celexa) 10 mg PO PM [facility] Last Admin: 05/14/17 20:07 Dose: 10 mg Cyanocobalamin (Vit. B-12) 1,000 mcg PO DAILY [facility] Last Admin: 05/15/17 08:16 Dose: 1,000 mcg Diazepam (Valium) 1 mg PO BID [facility] Last Admin: 05/15/17 08:16 Dose: 1 mg Haloperidol (Haldol) 0.5 mg PO Q6H PRN PRN Reason: Extreme agitation Haloperidol Lactate (Haldol) 0.5 mg IM Q6H PRN PRN Reason: Extreme agitation Levothyroxine Sodium (Synthroid) 50 mcg PO ACB [facility] Last Admin: 05/15/17 08:14 Dose: 50 mcg Lidocaine (Lidoderm) 1 patch TOP DAILY [facility] Last Admin: 05/15/17 08:17 Dose: 1 patch Lidocaine HCl/Dextrose (Lidoderm Patch Removal) 1 removal TOP 2099 [facility] Last Admin: 05/14/17 20:10 Dose: 1 removal Lorazepam (Ativan) 0.5 mg PO Q6H PRN PRN Reason: Extreme agitation Lorazepam (Ativan Inj) 0.5 mg IM Q6H PRN PRN Reason: Extreme agitation Meloxicam (Mobic) 15 mg PO DAILY [facility] Last Admin: 05/15/17 08:16 Dose: 15 mg Montelukast Sodium (Singulair) 10 mg PO HS [facility] Last Admin: 05/14/17 20:07 Dose: 10 mg --Pom--(Eluxadoline ([Viberzi] 100 Mg)) 100 mg PO BID [facility] Last Admin: 05/15/17 08:15 Dose: 100 mg Olanzapine (Zyprexa) 10 mg PO 2100 [facility] Last Admin: 05/14/17 20:08 Dose: 10 mg Propranolol HCl (Inderal) 40 mg PO DAILY [facility] Last Admin: 05/15/17 08:15 Dose: 40 mg Ranitidine HCl (Zantac) 150 mg PO BID [facility] Last Admin: 05/15/17 08:17 Dose: 150 mg Subjective: Pt seen and chart examined. Nursing reports pt is doing well. Sleeping well and has a good appetite. No behaviors noted. On face to face the pt states she is doing well Feels back to baseline. Denies S/I or psychosis. Tolerating meds Start Time: 10:00 Stop Time: 10:15 Mental Status Exam Vitals: Last Vital Signs Temp 96.7 F L 05/15/17 09:00 Pulse 77 05/15/17 09:00 Resp 16 05/15/17 09:00 BP 145/94 H 05/15/17 09:00 Pulse Ox 99 05/15/17 09:00 Height: 1.42 m Weight: 57.6 kg - Mental Status Exam Muscle Strength/Tone: Normal Dressing: Casual Grooming: Good Attitude: Cooperative Motor Activity: Normal Eye Contact: Good Speech: Normal Volume: Normal Rhythm: Appropriate Rhythm Orientation: Oriented X4 Mood: Neutral Rate of Thoughts: Delayed Thought Organization: [place] Associations: Intact Abstract Reasoning: Poor abstract reasoning Thought Content: Normal Perception/Psychotic: Hx psychosis, not current Fund of Knowledge: Poor fund of knowledge Memory: Poor-immediate Suicidal Ideation: None Homicidal Ideation: None Insight: Fair Judgement: Fair Impulse Control: Fair - Laboratory Result Diagrams: 05/11/17 22:50 05/11/17 22:50 Assessment and Plan (1) Delusional disorder Current visit: Yes Status: Acute (2) MDD (major depressive disorder), recurrent episode, moderate Current visit: Yes Status: Acute (3) Intellectual disability Problem details: Mild Current visit: Yes Status: Acute Hospital Course Summary Disclaimer: The visit summary below is not to be considered part of the above Progress Note. Hospital Course: 05/12/17 inital admission Agree with admission to the [facility] unit for further psychiatric evaluation and treatment Appears that diabetes is diet controlled. Monitor Accu-Cheks as needed. Monitor blood pressure, this morning 142/92. Continue with Inderal Recommend continuing Mobic 15 milligrams daily for ongoing back pain. Continue Viberzi for chronic IBS symptoms Encourage patient to participate in unit activities and provide a safe environment. At time of discharge medical care will return to primary care provider, Dr. Wilde The hospitalist services will continue to follow patient medically manage her existing comorbidities during her stay in the [facility] unit 05/13/17 16:54 Continue current care 05/13/17 20:38-Rose Pressures modestly elevated until this afternoon-continue to follow, currently not on medication for hypertension. May require initiation of therapy if systolic blood pressures continues to run above 150 on a regular basis. Blood pressure appears to be well-controlled on review of recent outpatient records. TSH slightly increased, was within normal limits when checked as an outpatient in November of this year and last April. No modification in levothyroxine dose at this time. B 12 level low-methylmalonic acid to be drawn and oral B-12 replacement to be started. A1c normal-does not require monitoring of blood sugars. 05/14/17 11:06 Continue current care 05/15/17 11:05 Continue current care
--- NOTE | 2017-05-15 11:50 | Progress Note ---
Subjective: Tonia was seen in her room. Her nurse reports that she has been having some diarrhea. She'll reports that she has had 2 episodes of watery diarrhea this morning, but also absent at home. She usually takes 2 Viberzi (but this exceeds recommended dosing) each morning for her constipation predominant IBS. She has a little bit of abdominal discomfort, pointing to the periumbilical region. She denies any nausea or vomiting. No blood in her stools. Objective Vital signs: Temperature 96.7 F L 05/15/17 09:00 Pulse Rate 77 05/15/17 09:00 Respiratory Rate 16 05/15/17 09:00 Blood Pressure 145/94 H 05/15/17 09:00 Pulse Oximetry 99 05/15/17 09:00 Oxygen Delivery Method Room Air Weight: 57.6 kg - Constitutional Present: no acute distress, mild distress, well nourished, well developed, thin - Routine HEENT Exam Head: Present: normocephalic Eye: Absent: conjunctival icterus, scleral injection ENT: Present: mucous membranes moist - Routine Respiratory Exam Present: CTA bilaterally - Routine Cardiovascular Exam Present: RRR, S1, S2 - Routine Abdominal Exam Present: soft, normoactive bowel sounds, non distended, non tender. 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 Irritable bowel syndrome with irritable colitis-chronic Osteoarthritis. History of migraine headaches Blood pressures remain moderately elevated. Will start low-dose lisinopril. Repeat BMP tomorrow morning. Admission BMP was unremarkable, normal renal function. Regarding diarrhea with mild abdominal discomfort, continue current medications. Repeat CBC tomorrow morning. Low suspicion for infectious diarrhea. Vitamin B12 deficiency: Continue oral replacement, methylmalonic acid is pending. Follow up in outpatient setting regarding mildly elevated TSH. Continue levothyroxine at current dose. Sepsis Assessment - Evaluation Sepsis screening result: No Definite Risk Hospital Course Summary Disclaimer: The visit summary below is not to be considered part of the above Progress Note. Hospital Course: 05/12/17 inital admission Agree with admission to the [facility] for further psychiatric evaluation and treatment Appears that diabetes is diet controlled. Monitor Accu-Cheks as needed. Monitor blood pressure, this morning 142/92. Continue with Inderal Recommend continuing Mobic 15 milligrams daily for ongoing back pain. Continue Viberzi for chronic IBS symptoms Encourage patient to participate in unit activities and provide a safe environment. At time of discharge medical care will return to primary care provider, Dr. Wilde The hospitalist services will continue to follow patient medically manage her existing comorbidities during her stay in the [facility] unit 05/13/17 16:54 Continue current care 05/13/17 20:38-Rose Pressures modestly elevated until this afternoon-continue to follow, currently not on medication for hypertension. May require initiation of therapy if systolic blood pressures continues to run above 150 on a regular basis. Blood pressure appears to be well-controlled on review of recent outpatient records. TSH slightly increased, was within normal limits when checked as an outpatient in November of this year and last April. No modification in levothyroxine dose at this time. B 12 level low-methylmalonic acid to be drawn and oral B-12 replacement to be started. A1c normal-does not require monitoring of blood sugars. 05/14/17 11:06 Continue current care 05/15/17 11:05 Continue current care 05/15/17 11:55 Blood pressures remain moderately elevated. Will start low-dose lisinopril. Repeat BMP tomorrow morning. Admission BMP was unremarkable, normal renal function. Regarding diarrhea with mild abdominal discomfort, continue current medications. Repeat CBC tomorrow morning. Low suspicion for infectious diarrhea. Vitamin B12 deficiency: Continue oral replacement, methylmalonic acid is pending. Follow up in outpatient setting regarding mildly elevated TSH. Continue levothyroxine at current dose.
[2017-05-15] MEDS: LISINOPRIL 2.5 MG TABLET PO SCH (12:16)
[2017-05-15] MEDS: ACETAMINOPHEN 325 MG TABLET PO PRN (13:57)
--- NOTE | 2017-05-15 18:32 | Discharge Instructions ---
Discharge Plan - Med Rec/Dispo Referrals/Follow Up: [facility] [Provider Group] (Josephine Edwards on ) [facility] [Provider Group] (WINTER Starkey on 05/16/17 at 2:00 pm for Mental Health follow-up. . [facility] [address] [place] [address]) Leesa Wilde DO [Primary Care Provider] - (Dr. Umair Wilde on 05/23/17 at 10:40 am for Hosp. follow-up. [address] [place] [address]) Additional Instructions: Reasons for Admission: Discharge Diagnosis: IN CASE OF PSYCHIATRIC EMERGENCY, CONTACT [facility] STAFF AT [phone] ( available 24 hrs daily). Prescriptions: New Diazepam [Valium] 1 mg PO BID #30 tablet OLANZapine [ZyPREXA] 10 mg PO 2100 #30 tablet Continue Citalopram Hydrobromide [Celexa] 10 mg PO PM #0 Discontinued OLANZapine [Olanzapine] 1 tab PO HS #0 No Action Levothyroxine Sodium 50 mcg PO DAILY #0 Lactobacillus Acidophilus [Probiotic] 1 each PO DAILY diazepam 2 mg tablet 1 mg PO BID 15 Days ranitidine 150 mg tablet 150 mg PO BID 30 Days cyclobenzaprine 10 mg tablet 10 mg PO HS PRN 30 Days PRN Reason: Spasms meloxicam 15 mg tablet 15 mg PO DAILY 30 Days eluxadoline 100 mg tablet 100 mg PO BID 30 Days montelukast 10 mg tablet 10 mg PO HS 90 Days cetirizine 10 mg tablet 10 mg PO DAILY 30 Days propranolol 40 mg tablet 40 mg PO DAILY 30 Days Discharge Instructions/Outpatient Orders: Final Provider Discharge Instructions Location: Determined By Patient - Disposition 01 Discharged Home, Self-Care
[2017-05-15] MEDS: OLANZapine 10 MG TABLET PO SCH (20:04)
[2017-05-15] MEDS: MONTELUKAST 10 MG TABLET PO SCH (20:04)
[2017-05-15] MEDS: CITALOPRAM 10 MG TABLET PO SCH (20:04)
[2017-05-15] MEDS: LIDOCAINE PATCH REMOVAL TOP SCH (20:05)
[2017-05-15 21:04] VITALS: O2SAT 98
[2017-05-16] MEDS: MONTELUKAST 10 MG TABLET PO SCH (04:23)
[2017-05-16] MEDS: LEVOTHYROXINE 50 MCG TABLET PO SCH (05:56)
[2017-05-16] MEDS: ELUXADOLINE 100 MG PO SCH (08:00)
[2017-05-16] MEDS: LIDOCAINE 5% PATCH TOP SCH (08:01)
[2017-05-16] MEDS: PROPRANOLOL 20 MG TABLET PO SCH (08:01)
[2017-05-16] MEDS: MELOXICAM 15 MG TABLET PO SCH (08:01)
[2017-05-16] MEDS: DIAZEPAM 2 MG TABLET PO SCH (08:02)
[2017-05-16] MEDS: LISINOPRIL 2.5 MG TABLET PO SCH (08:02)
[2017-05-16] MEDS: CYANOCOBALAMIN (B-12) 500mcg TABLET PO SCH (08:03)
[2017-05-16] MEDS: RANITIDINE 150 MG TABLET PO SCH (08:03)
[2017-05-16] MEDS: CETIRIZINE 10 MG TABLET PO SCH (08:03)
--- NOTE | 2017-05-16 08:33 | Discharge Instructions ---
Discharge Plan - Med Rec/Dispo Referrals/Follow Up: [facility] [Provider Group] (Josephinemarti Edwards on 05/23/17 at 2:45 pm for Med Management. . [facility] [address] [place] [address]) [facility] [Provider Group] (Luciana EsvinWINTER on 05/16/17 at 2:00 pm for Mental Health follow-up. . [facility] [address] [place] [id number]) Leesa Wilde DO [Primary Care Provider] - (Dr. Umair Wilde on 05/23/17 at 10:40 am for Hosp. follow-up. [address] [place] [address]) Additional Instructions: Reasons for Admission: Psychosis Discharge Diagnosis: Major Depressive Disorder Recurrent Severe with psychosis IN CASE OF PSYCHIATRIC EMERGENCY, CONTACT GENERATIONS STAFF AT [phone] ( available 24 hrs daily). Prescriptions: New Diazepam [Valium] 1 mg PO BID #30 tablet OLANZapine [ZyPREXA] 10 mg PO 2100 #30 tablet Cyanocobalamin (B-12) [Vit. B-12] 1,000 mcg PO DAILY tablet Acetaminophen [Tylenol] 650 mg PO Q5H PRN tablet PRN Reason: Pain Lisinopril [Prinivil] 2.5 mg PO DAILY #30 tablet Continue Citalopram Hydrobromide [Celexa] 10 mg PO PM #0 Levothyroxine Sodium 50 mcg PO DAILY #0 Lactobacillus Acidophilus [Probiotic] 1 each PO DAILY ranitidine 150 mg tablet 150 mg PO BID 30 Days cyclobenzaprine 10 mg tablet 10 mg PO HS PRN 30 Days PRN Reason: Spasms meloxicam 15 mg tablet 15 mg PO DAILY 30 Days eluxadoline 100 mg tablet 100 mg PO BID 30 Days montelukast 10 mg tablet 10 mg PO HS 90 Days cetirizine 10 mg tablet 10 mg PO DAILY 30 Days propranolol 40 mg tablet 40 mg PO DAILY 30 Days Discontinued OLANZapine [Olanzapine] 1 tab PO HS #0 No Action diazepam 2 mg tablet 1 mg PO BID 15 Days Discharge Instructions/Outpatient Orders: Final Provider Discharge Instructions Location: Determined By Patient Final Provider Discharge Instructions Location: Determined By Patient - Disposition 01 Discharged Home, Self-Care
--- NOTE | 2017-05-16 09:00 | Discharge Instructions ---
Discharge Plan - Med Rec/Dispo Referrals/Follow Up: [facility] [Provider [facility]] (Josephine Edwards on 05/23/17 at 2:45 pm for Med Management. . [facility] [address] [place] [address]) [facility] [Provider Group] (Luciana CardosoobiWINTER on 05/16/17 at 2:00 pm for Mental Health follow-up. . [facility] [address] [place] [id number]) Leesa Wilde DO [Primary Care Provider] - (Dr. Umair Wilde on 05/23/17 at 10:40 am for Hosp. follow-up. [address] [place] [address]) Additional Instructions: Reasons for Admission: Psychosis Discharge Diagnosis: Major Depressive Disorder Recurrent Severe with psychosis IN CASE OF PSYCHIATRIC EMERGENCY, CONTACT GENERATIONS STAFF AT [phone] ( available 24 hrs daily). Prescriptions: New Diazepam [Valium] 1 mg PO BID #30 tablet OLANZapine [ZyPREXA] 10 mg PO 2100 #30 tablet Continue Citalopram Hydrobromide [Celexa] 10 mg PO PM #0 Discontinued OLANZapine [Olanzapine] 1 tab PO HS #0 No Action Levothyroxine Sodium 50 mcg PO DAILY #0 Lactobacillus Acidophilus [Probiotic] 1 each PO DAILY diazepam 2 mg tablet 1 mg PO BID 15 Days ranitidine 150 mg tablet 150 mg PO BID 30 Days cyclobenzaprine 10 mg tablet 10 mg PO HS PRN 30 Days PRN Reason: Spasms meloxicam 15 mg tablet 15 mg PO DAILY 30 Days eluxadoline 100 mg tablet 100 mg PO BID 30 Days montelukast 10 mg tablet 10 mg PO HS 90 Days cetirizine 10 mg tablet 10 mg PO DAILY 30 Days propranolol 40 mg tablet 40 mg PO DAILY 30 Days Discharge Instructions/Outpatient Orders: Final Provider Discharge Instructions Location: Determined By Patient Final Provider Discharge Instructions Location: Determined By Patient - Disposition 01 Discharged Home, Self-Care
[2017-05-16 09:06] VITALS: BP 143/79; PULSE 78; RESP 18; TEMP 98.3
[2017-05-16] MEDS ORDERED: MONTELUKAST 10 MG TABLET PO SCH (21:00)
[2017-05-17] MEDS ORDERED: MELOXICAM 15 MG TABLET PO SCH (08:00)
--- NOTE | 2017-05-29 13:39 | Neuropsychiatric Disch Summary ---
Discharge Information Date of admission: 05/12/17 03:19 Attending Physician: Theron Moreno MD Primary care physician: Leesa Wilde, Consults: 05/12/17 03:47 Case Management Consult [CONS] Routine Reason For Exam: medical management Physician Consult [CONS] Routine Consulting Provider: Lesley Rose Reason For Exam: medical management Ordering Provider has Notified Senior User Experience Architect: No - Discharge Diagnosis Discharge Diagnosis: Schizoaffective Disorder - Laboratory Labs: 05/16/17 04:58 05/16/17 04:58 Date of Admission: 05/12/17 03:19 History of Present Illness: HPI: 66 Y/O CF with a hx of delusional disorder, depression and anxiety admitted for increasing confusion and some paranoia. Pt states recently she has been having a hard time sleeping and felt the police were "coming to arrest me". She states this is now improved although still there. She reports some depression but feels it is mild. Denies any S/I. STRESSORS: Pt states she ran out of her Valium over the last couple of days and feels this contributed to her symptoms. PSYCH ROS: Pt reports feeling depressed but feels it is mild. She reports her paranoia is her biggest issue and states she feels it is now improving. She denies any S/I or AH. Denies any hx of lan. PAST PSYCH: Pt states she has had 2 previous admits the most recent was 8 years ago in [place] for similar symptoms. 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 She denies ever trying to harm herself. She is currently on Zyprexa, Valium and Celexa. Hospital Course This is a general summary of the patient's hospital course. For more details refer to the complete medical record. Hospital course: 05/12/17 inital admission Agree with admission to the [facility] for further psychiatric evaluation and treatment Appears that diabetes is diet controlled. Monitor Accu-Cheks as needed. Monitor blood pressure, this morning 142/92. Continue with Inderal Recommend continuing Mobic 15 milligrams daily for ongoing back pain. Continue Viberzi for chronic IBS symptoms Encourage patient to participate in unit activities and provide a safe environment. At time of discharge medical care will return to primary care provider, Dr. Wilde The hospitalist services will continue to follow patient medically manage her existing comorbidities during her stay in the [facility] 05/13/17 16:54 Continue current care 05/13/17 20:38-Rose Pressures modestly elevated until this afternoon-continue to follow, currently not on medication for hypertension. May require initiation of therapy if systolic blood pressures continues to run above 150 on a regular basis. Blood pressure appears to be well-controlled on review of recent outpatient records. TSH slightly increased, was within normal limits when checked as an outpatient in November of this year and last April. No modification in levothyroxine dose at this time. B 12 level low-methylmalonic acid to be drawn and oral B-12 replacement to be started. A1c normal-does not require monitoring of blood sugars. 05/14/17 11:06 Continue current care 05/15/17 11:05 Continue current care 05/15/17 11:55 Blood pressures remain moderately elevated. Will start low-dose lisinopril. Repeat BMP tomorrow morning. Admission BMP was unremarkable, normal renal function. Regarding diarrhea with mild abdominal discomfort, continue current medications. Repeat CBC tomorrow morning. Low suspicion for infectious diarrhea. Vitamin B12 deficiency: Continue oral replacement, methylmalonic acid is pending. Follow up in outpatient setting regarding mildly elevated TSH. Continue levothyroxine at current dose. Time spent with patient: 25 - 35 minutes Discharge Plan - Med Rec/Dispo Referrals/Follow Up: [facility]] (Josephine Edwards on 05/23/17 at 2:45 pm for Med Management. . [facility] [address] [place] [address]) [facility] [Provider Group] (WINTER Starkey on 05/16/17 at 2:00 pm for Mental Health follow-up. . [facility] [address] [place] [id number]) Leesa Wilde DO [Primary Care Provider] - (Dr. Umair Wilde on 05/23/17 at 10:40 am for Hosp. follow-up. [address] [place] [address]) Josemanueluvcallie Instructions: Depression (GEN), Generalized Anxiety Disorder (GEN) Additional Instructions: Reasons for Admission: Psychosis Discharge Diagnosis: Major Depressive Disorder Recurrent Severe with psychosis IN CASE OF PSYCHIATRIC EMERGENCY, CONTACT GENERATIONS STAFF AT [phone] ( available 24 hrs daily). Prescriptions: New Diazepam [Valium] 1 mg PO BID #30 tablet OLANZapine [ZyPREXA] 10 mg PO 2100 #30 tablet Cyanocobalamin (B-12) [Vit. B-12] 1,000 mcg PO DAILY tablet Lidocaine 5% Patch [Lidoderm] 1 patch TRANSDERMA Q24HR #10 patch Acetaminophen [Tylenol] 650 mg PO Q5H PRN tablet PRN Reason: Pain Lisinopril [Prinivil] 2.5 mg PO DAILY #30 tablet Continue Citalopram Hydrobromide [Celexa] 10 mg PO PM #0 Levothyroxine Sodium 50 mcg PO DAILY #0 Lactobacillus Acidophilus [Probiotic] 1 each PO DAILY Zantac (Ranitidine) 150 mg tablet 150 mg PO BID 30 Days #60 tab cyclobenzaprine 10 mg tablet 10 mg PO HS PRN 30 Days #30 tab PRN Reason: Spasms Mobic (Meloxicam) 15 mg tablet 15 mg PO DAILY 30 Days tab eluxadoline 100 mg tablet 100 mg PO BID 30 Days #60 tab montelukast 10 mg tablet 10 mg PO HS 90 Days #90 tab Zyrtec (Cetirizine) 10 mg tablet 10 mg PO DAILY 30 Days tab propranolol 40 mg tablet 40 mg PO DAILY 30 Days tab Discontinued OLANZapine [Olanzapine] 1 tab PO HS #0 No Action diazepam 2 mg tablet 1 mg PO BID 15 Days #30 tab Discharge Instructions/Outpatient Orders: Final Provider Discharge Instructions Location: Determined By Patient Final Provider Discharge Instructions Location: Determined By Patient - Disposition 01 Discharged Home, Self-Care
== END 2017-05-16 12:45 | disposition home or self-care (01) | DRG 885 ==
LOC: ED 22:24 → GEN 05-12 03:19 → ED 05-12 03:20
PROVIDERS: ADMIT Psychiatry & Neurology Psychiatry; ATTEND Psychiatry & Neurology Psychiatry

== ENCOUNTER 2018-05-26 08:17 | Inpatient (IN) ==
--- NOTE | 2018-05-26 08:20 | Emergency Department Report ---
Neuro HPI - General Stated Complaint: poss stroke Time Seen by Provider: 05/26/18 08:19 Source: patient Mode of arrival: wheelchair Limitations: no limitations - History of Present Illness HPI Narrative: Patient is a 67-year-old female presents emergency room for evaluation of nausea vomiting diarrhea weakness. 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 Patient not having actual stroke symptoms, has been having nausea vomiting diarrhea for the past 24 hours,'s feeling very weak at this time. Patient having no abdominal pain no fevers no chills no localizing weakness or other symptoms. Patient was brought in by family on arrival patient tachycardic 120, blood pressure 75/46, 85% on room air. - Related Data Home Medications: Home Medications Medication Instructions Recorded Confirmed Levothyroxine Sodium 50 mcg PO DAILY #0 07/19/12 05/26/18 Cetirizine [Zyrtec] 10 mg PO DAILY 01/30/18 05/26/18 Cyclobenzaprine [Flexeril] 10 mg PO BID PRN 01/30/18 05/26/18 Eluxadoline [Viberzi] 100 mg PO BID 01/30/18 05/26/18 Montelukast [Singulair] 10 mg PO HS 01/30/18 05/26/18 OLANZapine [ZyPREXA] 10 mg PO HS 01/30/18 05/26/18 Propranolol HCl 40 mg PO DAILY 01/30/18 05/26/18 Ranitidine [Zantac] 150 mg PO BID 01/30/18 05/26/18 Lactobacillus Acidophilus 1 cap PO DAILY 05/26/18 05/26/18 [Probiotic] Ondansetron [Zofran Odt] 4 mg PO Q6HR PRN 05/26/18 05/26/18 Previous Rx's Medication Instructions Recorded Diazepam [Valium] 1 mg PO BID #30 tab 05/15/17 Lisinopril [Prinivil] 2.5 mg PO DAILY #30 tab 05/16/17 Allergies/Adverse Reactions: Allergies Allergy/AdvReac Type Severity Reaction Status Date / Time dextromethorphan Allergy Unknown Verified 04/06/18 10:13 guaifenesin Allergy Unknown Verified 05/26/18 09:21 hydrocodone Allergy Unknown HIVES, Verified 05/26/18 09:21 SKIN RASH oxaprozin Allergy Unknown Verified 05/26/18 09:21 paromomycin Allergy Unknown Verified 05/26/18 09:21 potassium guaiacolsulfonate Allergy Unknown Verified 04/06/18 10:13 propoxyphene Allergy Unknown Verified 05/26/18 09:21 [From [facility]] Review of Systems Constitutional: Reports: weakness. Denies: fever, chills Eyes: Denies: eye pain, eye discharge, vision change ENT: Denies: ear pain, throat pain, dental pain, congestion Cardiovascular: Denies: chest pain, palpitations, dyspnea on exertion Respiratory: Reports: cough, dyspnea. Denies: wheezes Gastrointestinal: Reports: nausea, vomiting, diarrhea. Denies: abdominal pain Genitourinary: Denies: dysuria, frequency Neurological: Denies: headache Psychiatric: Denies: anxiety Endocrine: Denies: fatigue Hematological/Lymphatic: Denies: easy bleeding PFSH Patient Stated Medical History Cataracts Yes Hypertension Yes Other Respiratory Yes: ALLERGIES Gastroesophageal Reflux Yes Disease Other GI Yes: IBS Other Musculoskeletal Yes: DEGENERATIVE JOINT DISEASE OF CERVICAL SPINE Schizophrenia Yes Clinic Medical History (Last Reviewed 04/06/18 @ 10:42 by Elda Pradhan MD) Hypothyroidism (Chronic Medical) Goiter (Chronic Medical) Schizophrenia (Chronic Medical) Lumbago (Chronic Medical) Irritable bowel syndrome (Chronic Medical) GERD (gastroesophageal reflux disease) (Chronic Medical) 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 Right total knee. . Colonoscopy-. Cataract extraction Family History: Family History (Last Reviewed 04/06/18 @ 10:42 by Elda Pradhan MD) Mother Cancer of breast Mother Cervical cancer Liver cancer High blood pressure Depression Cancer of spine Cancer of colon - Social History Smoking status: Never smoker Substance use type: does not use Alcohol intake frequency: does not drink Household members: spouse Current residence: Apartment/Private Home Physical Exam - Limitations Limitations: no limitations - General General appearance: alert, in no apparent distress - Eye Eye exam: Present: PERRL - ENT ENT exam: Present: normal oropharynx, mucous membranes dry, TM's normal bilaterally. Absent: mucous membranes moist - Neck Neck exam: Present: full ROM, trachea midline. Absent: tenderness - Chest Chest inspection: Present: symmetric chest wall rise - Respiratory Respiratory exam: Present: crackles (right upper and middle). Absent: normal lung sounds bilaterally, respiratory distress, wheezes, accessory muscle use, prolonged expiratory phase - Cardiovascular Cardiovascular exam: Present: normal rhythm, tachycardia, normal heart sounds - Abdominal Exam Abdominal exam: Present: soft, normal bowel sounds. Absent: distention, tenderness - Skin Skin exam: Present: warm, dry - Expanded Neurological Exam Patient oriented to: Present: person, place, time Speech: Present: fluid speech Cranial nerves: Normal: EOM function (II, III, IV, ), facial sensation (V), facial palsy (VII), gag reflex (IX), spinal accessory function (XI), tongue deviation (XII) Cerebellar function: normal gait Motor strength - LUE: 5/5 Motor strength - RUE: 5/5 Motor strength - LLE: 5/5 Motor strength - RLE: 5/5 Sensory exam upper extremity: Normal: light touch Sensory exam lower extremity: Normal: light touch Coma scale eye opening: spontaneous Coma scale motor response: obeys commands Coma scale verbal response: oriented Coma scale total: 15 - Psychiatric Psychiatric exam: Present: normal affect, normal mood Course Vital Signs Pulse Rate 116 H 05/26/18 08:41 Respiratory Rate 13 05/26/18 08:41 Pulse Rate 114 H 05/26/18 08:45 Respiratory Rate 14 05/26/18 08:45 Blood Pressure 72/50 05/26/18 08:45 Pulse Oximetry 92 05/26/18 08:45 Neuro Symptoms/Deficit - MDM Narrative Medical decision making narrative: Discuss case with Dr. Rose, she will admit for sepsis, aspiration pneumonitis Patient is this time has received a total of 2150 mL, which meets fluid criteria for resuscitation. - Medical Records Attestation: I reviewed the patient's medical records. - Lab Data Attestation: I reviewed the patient's lab results. Result diagrams: 05/26/18 08:48 05/26/18 08:48 Lab Results 05/26/18 05/26/18 05/26/18 Range/Units 08:48 08:48 08:48 WBC 12.1 H (4.5-11.0) T/MM3 RBC 3.63 L (4.00-5.20) M/MM3 Hgb 11.2 L (12-16) GM/DL Hct 36.6 (36-46) % MCV 100.8 H (80-100) UM3 MCH 30.9 (26-34) UUG MCHC 30.6 L (31-37) GM/DL RDW Std Deviation 52.0 H (36.9-50.2) FL Plt Count 224 (130-400) T/MM3 MPV 10.4 (9.4-12.4) UM3 Immature Gran % (Auto) 0.4 (0.0-0.5) % Neut % (Auto) 78.7 H (33-66) % Lymph % (Auto) 13.3 L (23-45) % Chaves % (Auto) 7.0 (0-9.0) % Eos % (Auto) 0.3 (0-4) % Baso % (Auto) 0.3 (0-2) % Neut # (Auto) 9.5 H (1.8-7.7) T/MM3 Lymph # (Auto) 1.6 (1-4.8) T/MM3 Chaves # (Auto) 0.8 (0-0.8) T/MM3 Eos # (Auto) 0.0 (0-0.5) T/MM3 Baso # (Auto) 0.0 (0-0.2) T/MM3 Abs Immat Gran (auto) 0.05 H (0.00-0.03) T/MM3 Turbidity < 20 (0-20) Sodium 143 (136-146) MEQ/L Potassium 4.6 (3.6-5) MEQ/L Chloride 110 H (98-107) MEQ/L Carbon Dioxide 21 L (22-30) MEQ/L Anion Gap 12 (5-15) meq/L BUN 59.0 H* (7-17) MG/DL Creatinine 3.3 H (0.7-1.2) mg/dL Estimated Creat Clear 13 (>50) mL/min GFR Calculation 14 (>60) mL/min BUN/Creatinine Ratio 18 (6-26) RATIO Glucose 141 H (65-110) MG/DL Calculated Osmolality 294 H (261-280) MOSM/KG Calcium 8.6 (8.4-10.2) MG/DL Total Bilirubin 0.40 (0.20-1.30) MG/DL Icterus Index < 2 (0-7) AST 23 (14-36) U/L ALT 20 (1-35) U/L Alkaline Phosphatase 67 (38-126) U/L Total Protein 5.6 L (6.3-8.2) g/dL Albumin 3.1 L (3.5-5.0) g/dL Globulin 2.5 (2.4-3.6) G/DL Albumin/Globulin Ratio 1.2 (1.1-2.2) RATIO Lipase 23 (23-300) U/L Plasma Lactate 3.1 H (0.6-2.2) MMOL/L Specimen Hemolysis 16 (0-25) Stl Cyclospora species (Negative) Stool Rotavirus A PCR (Negative) Stool Adenovirus (PCR) (Negative) Stool Astrovirus (PCR) (Negative) Stool Campylobacter PCR (Negative) Stl C.difficile Tox PCR (Negative) Stool Cryptosporidium PCR (Negative) Stl E.coli Shiga Toxins (Negative) Stl Enterotoxigenic E PCR (Negative) Stool EPEC (PCR) (Negative) Stool EAEC (PCR) (Negative) Stool Entamoeba (PCR) (Negative) Stool Giardia Lamblia PCR (Negative) Stool Salmonella PCR (Negative) Stool Sapovirus (PCR) (Negative) Stl P. shigelloides PCR (Negative) Stl Shigella/EIEC PCR (Negative) St Y.enterocolitica PCR (Negative) Stool Vibrio (PCR) (Negative) Stl Vibrio cholera PCR (Negative) Stl Norovirus GI/GII PCR (Negative) 05/26/18 Range/Units 08:59 WBC (4.5-11.0) T/MM3 RBC (4.00-5.20) M/MM3 Hgb (12-16) GM/DL Hct (36-46) % MCV (80-100) UM3 MCH (26-34) UUG MCHC (31-37) GM/DL RDW Std Deviation (36.9-50.2) FL Plt Count (130-400) T/MM3 MPV (9.4-12.4) UM3 Immature Gran % (Auto) (0.0-0.5) % Neut % (Auto) (33-66) % Lymph % (Auto) (23-45) % Chaves % (Auto) (0-9.0) % Eos % (Auto) (0-4) % Baso % (Auto) (0-2) % Neut # (Auto) (1.8-7.7) T/MM3 Lymph # (Auto) (1-4.8) T/MM3 Chaves # (Auto) (0-0.8) T/MM3 Eos # (Auto) (0-0.5) T/MM3 Baso # (Auto) (0-0.2) T/MM3 Abs Immat Gran (auto) (0.00-0.03) T/MM3 Turbidity (0-20) Sodium (136-146) MEQ/L Potassium (3.6-5) MEQ/L Chloride (98-107) MEQ/L Carbon Dioxide (22-30) MEQ/L Anion Gap (5-15) meq/L BUN (7-17) MG/DL Creatinine (0.7-1.2) mg/dL Estimated Creat Clear (>50) mL/min GFR Calculation (>60) mL/min BUN/Creatinine Ratio (6-26) RATIO Glucose (65-110) MG/DL Calculated Osmolality (261-280) MOSM/KG Calcium (8.4-10.2) MG/DL Total Bilirubin (0.20-1.30) MG/DL Icterus Index (0-7) AST (14-36) U/L ALT (1-35) U/L Alkaline Phosphatase (38-126) U/L Total Protein (6.3-8.2) g/dL Albumin (3.5-5.0) g/dL Globulin (2.4-3.6) G/DL Albumin/Globulin Ratio (1.1-2.2) RATIO Lipase (23-300) U/L Plasma Lactate (0.6-2.2) MMOL/L Specimen Hemolysis (0-25) Stl Cyclospora species Negative (Negative) Stool Rotavirus A PCR Negative (Negative) Stool Adenovirus (PCR) Negative (Negative) Stool Astrovirus (PCR) Negative (Negative) Stool Campylobacter PCR Negative (Negative) Stl C.difficile Tox PCR Negative (Negative) Stool Cryptosporidium PCR Negative (Negative) Stl E.coli Shiga Toxins Negative (Negative) Stl Enterotoxigenic E PCR Negative (Negative) Stool EPEC (PCR) Negative (Negative) Stool EAEC (PCR) Negative (Negative) Stool Entamoeba (PCR) Negative (Negative) Stool Giardia Lamblia PCR Negative (Negative) Stool Salmonella PCR Negative (Negative) Stool Sapovirus (PCR) Negative (Negative) Stl P. shigelloides PCR Negative (Negative) Stl Shigella/EIEC PCR Negative (Negative) St Y.enterocolitica PCR Negative (Negative) Stool Vibrio (PCR) Negative (Negative) Stl Vibrio cholera PCR Negative (Negative) Stl Norovirus GI/GII PCR Negative (Negative) - Radiology Data Attestation: I reviewed the patient's radiology results. Chest x-ray: Aspiration pneumonitis Disposition Clinical Impression: Aspiration pneumonitis Sepsis Qualifiers: Sepsis type: sepsis due to unspecified organism Qualified Code(s): A41.9 - Sepsis, unspecified organism Disposition: 02 To [facility] Acute Care Condition: Stable Prescriptions: No Action Diazepam [Valium] 1 mg PO BID #30 tab OLANZapine [ZyPREXA] 10 mg PO HS Propranolol HCl 40 mg PO DAILY Eluxadoline [Viberzi] 100 mg PO BID Cyclobenzaprine [Flexeril] 10 mg PO BID PRN PRN Reason: Prn Orders Ranitidine [Zantac] 150 mg PO BID Cetirizine [Zyrtec] 10 mg PO DAILY Lactobacillus Acidophilus [Probiotic] 1 cap PO DAILY Ondansetron [Zofran Odt] 4 mg PO Q6HR PRN PRN Reason: Nausea Levothyroxine Sodium 50 mcg PO DAILY #0 Lisinopril [Prinivil] 2.5 mg PO DAILY #30 tab Montelukast [Singulair] 10 mg PO HS Referrals: Leesa Wilde DO [Primary Care Provider] - Time of Disposition: 10:25 - Seen By: physician
[2018-05-26] MEDS ORDERED: NS 1,000 ML IV ONE ×2 (08:32→09:21)
--- OUTSIDE RECORDS SUMMARY | 2018-05-26 08:36 | External Medical Summary | Continuity of Care Document ---
:1950 Author Organization [facility] Allergies Active Description Code Type Severity Reaction Onset Reported/ Identified Relationship Clinical to Patient Status Yes DARVOCET Drug N/A N/A A500 Aller gy Yes DAYPRO 26997 Drug N/A N/A 90786 Aller 1 gy Yes HUMIBID 24853 Drug N/A N/A MAXIMUM 3 Aller STRENGTH gy Yes HYDROCODONE- 18993 Drug N/A N/A ACETAMINOPHE 96642 Aller N 1 gy Yes PAROMOMYCIN Drug N/A N/A Aller gy Yes guaiFENesin NKMA N/A N/A 02/13/2014 Yes HYDROcodone NKMA N/A Hives/Ski 02/13/2014 n Rash Yes oxaprozin NKMA N/A N/A 02/13/2014 Yes Paromomycin NKMA N/A N/A 04/08/2014 Sulfate Yes propoxyphene NKMA N/A N/A 04/08/2014 napsylate Yes dextromethor Aller Unknown N/A 04/06/2018 cadena gy Yes guaifenesin Aller Unknown N/A 04/06/2018 gy Yes hydrocodone Aller Unknown HIVES, 04/06/2018 gy SKIN RASH Yes oxaprozin Aller Unknown N/A 04/06/2018 gy Yes paromomycin Aller Unknown N/A 04/06/2018 gy Yes potassium Aller Unknown N/A 04/06/2018 guaiacolsulf gy melita Yes propoxyphene Aller Unknown N/A 04/06/2018 gy Medications Medication Packaging Start Stop Route Dosage Sig Date Date Celexa PO 10 mg 2 PM PM MG 10 2 MG ZYPREXA ORAL ORAL 2 015 CELEXA ORAL ORAL 2 015 PO 50 mcg Levothyroxine 2 DAILY Sodium DAILY MCG 50 2 MCG 1 tabs Oral 10 mg citalopram(CeleXA 4 016 1 tabs, 10 mg oral tablet) Oral, Daily, 30 tabs clonazePAM(clonazeP 4 016 See AM 0.5 mg oral Instructions tablet) , Take 1/2 tab q A.M. and 1 tab daily at noon 1 tabs Oral 7.5 mg OLANZapine(ZyPREXA 4 1 tabs, 7.5 mg oral tablet) Oral, Daily, 30 tabs meclizine(meclizine 4 015 See 25 mg oral tablet) Instructions , Take 1 tab q 4-6 hr as needed for dizziness 1 tabs Oral 50 mcg levothyroxine(Synth 4 014 1 tabs, roid 50 mcg (0.05 Oral, Daily, mg) oral tablet) 30 tabs 1 caps Oral 10 mg dicyclomine(dicyclo 4 014 1 caps, mine 10 mg oral Oral, QID capsule) TYLENOL ORAL ORAL 5 015 ORAL ORAL 40 MECLIZINE HCL 5 015 every 6 hours ORAL ORAL 20 CLONAZEPAM 5 015 twice daily ORAL ORAL OLANZAPINE 5 at bedtime ORAL ORAL MECLIZINE HCL 5 q4-6h ORAL ORAL LEVOTHYROXINE 5 daily SODIUM ORAL ORAL CLONAZEPAM 5 twice daily CELEXA ORAL ORAL 5 daily TYLENOL ORAL ORAL 8 HOUR 5 twice daily OXYCODONE HCL 5 0.5 mL IntraMuscular influenza virus 5 015 0.5 mL, vaccine, IntraMuscula inactivated(influen r, Once za virus vaccine, inactivated) 1 tabs Oral 20 mg citalopram(CeleXA 6 017 20 mg=1 20 mg oral tablet) tabs, Oral, Daily, 30 tabs, 0 Refill(s) fluticasone 6 See nasal(fluticasone Instructions 50 mcg/inh nasal , 1 spray spray) each nostril Nasal BID, 1 Each, 3 Refill(s) 1 tabs Oral 10 mg montelukast(Singula 6 016 10 mg=1 ir 10 mg oral tabs, Oral, tablet) qPM, 30 tabs, 0 Refill(s) 1 tabs Oral 10 mg montelukast(Singula 6 016 10 mg=1 ir 10 mg oral tabs, Oral, tablet) qPM, 90 tabs, 1 Refill(s) 0.5 mL IntraMuscular pneumococcal 6 016 0.5 mL, 13-valent conjugate IntraMuscula vaccine(pneumococca r, Once l 13-valent conjugate vaccine) 0.5 tabs Oral 1 mg diazepam(diazepam 2 6 1 mg=0.5 mg oral tablet) tabs, Oral, BID, 0 Refill(s) 2 tabs Oral 40 mg dicyclomine(dicyclo 6 017 40 mg=2 mine 20 mg oral tabs, Oral, tablet) q6hr, PRN: Diarrhea/Loo se Stools, 240 tabs, 1 Refill(s) 1 tabs Oral 50 mcg levothyroxine(levot 6 016 50 mcg=1 hyroxine 50 mcg tabs, Oral, (0.05 mg) oral Daily, 90 tablet) tabs, 0 Refill(s) 1 tabs Oral 550 mg rifaximin(Xifaxan 6 017 550 mg=1 550 mg oral tablet) tabs, Oral, TID, for 14 days, 42 tabs, 0 Refill(s) 0.5 mL IntraMuscular influenza virus 6 016 0.5 mL, vaccine, IntraMuscula inactivated(influen r, Once za virus vaccine, inactivated) 1 tabs Oral 100 mg eluxadoline(Viberzi 6 016 100 mg=1 100 mg oral tablet) tabs, Oral, BID, with food, 60 tabs, 0 Refill(s) levothyroxine(levot 6 017 See hyroxine 50 mcg Instructions (0.05 mg) oral , TAKE 1 tablet) TABLET BY MOUTH DAILY, 90 tabs 1 tabs Oral 10 mg cyclobenzaprine(cyc 7 017 10 mg=1 lobenzaprine 10 mg tabs, Oral, oral tablet) Daily, PRN: as needed for spasm, 30 tabs, 1 Refill(s) 1 tabs Oral 10 mg cetirizine(ZyrTEC 7 017 10 mg=1 10 mg oral tablet) tabs, Oral, Daily, 90 tabs, 0 Refill(s) 1 tabs Oral 10 mg cyclobenzaprine(cyc 7 10 mg=1 lobenzaprine 10 mg tabs, Oral, oral tablet) Daily, PRN: as needed for spasm, 30 tabs, 1 Refill(s) 1 tabs Oral 10 mg cetirizine(ZyrTEC 7 017 10 mg=1 10 mg oral tablet) tabs, Oral, Daily, 90 tabs, 0 Refill(s) levothyroxine(levot 7 017 See hyroxine 50 mcg Instructions (0.05 mg) oral , TAKE 1 tablet) TABLET BY MOUTH DAILY, 90 tabs 1 tabs Oral 100 mg eluxadoline(Viberzi 7 017 100 mg=1 100 mg oral tablet) tabs, Oral, BID, with food, 60 tabs, 6 Refill(s) 4 drops Ear-Right ciprofloxacin-dexam 7 017 4 drops, ethasone Ear-Right, otic(Ciprodex BID, for 7 0.3%-0.1% otic days, 7.5 suspension) mL, 0 Refill(s) cyclobenzaprine(cyc 7 017 See lobenzaprine 10 mg Instructions oral tablet) , TAKE 1 TABLET BY MOUTH EVERY NIGHT AT BEDTIME NEEDED FOR SPASM, 30 tabs 1 tabs Oral 20 mg nadolol(nadolol 20 7 017 20 mg=1 mg oral tablet) tabs, Oral, Daily, 30 tabs, 0 Refill(s) 1 tabs Oral 10 mg cetirizine(ZyrTEC 7 10 mg=1 10 mg oral tablet) tabs, Oral, Daily, 90 tabs, 0 Refill(s) 1 tabs Oral 100 mg eluxadoline(Viberzi 7 100 mg=1 100 mg oral tablet) tabs, Oral, BID, with food, 60 tabs, 0 Refill(s) levothyroxine(levot 7 See hyroxine 50 mcg Instructions (0.05 mg) oral , TAKE 1 tablet) TABLET BY MOUTH DAILY, 90 tabs cyclobenzaprine(cyc 7 See lobenzaprine 10 mg Instructions oral tablet) , TAKE 1 TABLET BY MOUTH EVERY NIGHT AT BEDTIME NEEDED FOR SPASM, 30 tabs, 1 Refill(s) 1 tabs Oral 15 mg meloxicam(meloxicam 7 15 mg=1 15 mg oral tablet) tabs, Oral, Daily, 30 tabs, 0 Refill(s) Viberzi PO 100 mg 7 BID Valium PO 2 mg 7 BID PO 10 mg Cyclobenzaprine HCl 7 HS PO 15 mg Meloxicam 7 DAILY Zyrtec PO 10 mg 7 DAILY PO 40 mg Propranolol HCl 7 DAILY Zantac PO 150 mg 7 BID PO 10 mg Singulair 7 HS BID MG 1 7 MG PO 1 each Probiotic 7 DAILY DAILY EACH 1 7 EACH Valium PO 2 mg 7 BID ZyPREXA PO 10 mg 7 2100 BID MG 1 7 MG TRANSDERMA 1 patch Lidoderm 7 Q24HR Tylenol PO 325 mg 7 Q5H Vit. PO 500 mcg B-12 7 DAILY PO 2.5 mg Prinivil 7 DAILY Q24HR PATCH 1 7 PATCH levothyroxine(levot 7 See hyroxine 50 mcg Instructions (0.05 mg) oral , TAKE 1 tablet) TABLET BY MOUTH DAILY, 90 tabs cetirizine(cetirizi 7 See ne 10 mg oral Instructions tablet) , TAKE 1 TABLET BY MOUTH DAILY, 90 tabs meloxicam(meloxicam 7 017 See 15 mg oral tablet) Instructions , TAKE 1 TABLET BY MOUTH DAILY, 90 tabs, 0 Refill(s) meloxicam(meloxicam 7 See 15 mg oral tablet) Instructions , TAKE 1 TABLET BY MOUTH DAILY, 90 tabs, 0 Refill(s) 1 tabs Oral 100 mg eluxadoline(Viberzi 7 017 100 mg=1 100 mg oral tablet) tabs, Oral, BID, with food, 60 tabs, 0 Refill(s) 1 tabs Oral 4 mg ondansetron(ondanse 7 as needed ingris 4 mg oral for tablet, nausea/vomit disintegrating) ing, # 10 tabs, 0 Refill(s) 4 mg=1 tabs, Oral, q6hr, PRN: Nausea or Vomiting as needed for nausea/vomit ing, 10 tabs, 0 Refill(s) 1 tabs Oral 100 mg eluxadoline(Viberzi 7 100 mg=1 100 mg oral tablet) tabs, Oral, BID, with food, 60 tabs, 11 Refill(s) Desyrel PO 50 mg 7 TID TID MG 50 7 MG TRANSDERMA 1 patch Lidoderm 8 Q24HR Viberzi PO 100 mg 8 BID Zantac PO 150 mg 8 BID PO 10 mg Flexeril 8 BID PO 10 mg Singulair 8 HS PO 500 mg Acetaminophen Extra 8 Q6H Strength Desyrel PO 50 mg 8 TID Viibryd PO 20 mg 8 DAILY PO 15 mg Meloxicam 8 DAILY Zyrtec PO 10 mg 8 DAILY PO 40 mg Propranolol HCl 8 DAILY Lipitor PO 20 mg 8 HS PO 10 mg Prednisone 8 DAILY ZyPREXA PO 10 mg 8 HS 1 tabs Oral 100 mg eluxadoline(Viberzi 8 100 mg=1 100 mg oral tablet) tabs, Oral, BID, with food, 60 tabs, 11 Refill(s) PO 50 mg Diclofenac 8 BID Potassium Problems Date Dx Attending Type Code Diagnosis Diagnosed By Coded 04/20/2016 Nikos Wilde Final E03.9 Hypothyroidism, unspecified 04/20/2016 Nikos Wilde Final H91.8X3 Other specified hearing loss, bilateral 04/20/2016 Nikos Wilde Final K52.9 Noninfective gastroenteritis and colitis, unspecified 04/20/2016 Nikos Wilde Final R51 Headache 05/26/2016 Nikos Wilde Final K52.9 Noninfective gastroenteritis and colitis, unspecified 06/17/2016 Chelsie, W Final R19.7 Diarrhea, unspecified Posey 07/08/2016 Nikos Wilde Final Z23 Encounter for immunization 07/15/2016 Patrizia Keen Final R19.7 Diarrhea, unspecified 07/15/2016 Patrizia Keen Final K21.9 Gastro-esophageal reflux disease without esophagitis 07/15/2016 Patrizia Keen Final K58.9 Irritable bowel syndrome without diarrhea 12/06/2016 Nikos Wilde Final G44.229 Chronic tension-type headache, not intractable 12/06/2016 Nikos Wilde Final J30.9 Allergic rhinitis, unspecified 12/06/2016 Nikos Wilde Final M54.2 Cervicalgia 12/09/2016 Nikos Wilde Final M47.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, cervical region 12/09/2016 Nikos Wilde Final R51 Headache 12/16/2016 Patrizia Keen Final F20.9 Schizophrenia, unspecified 12/16/2016 Patrizia Keen Final K21.9 Gastro-esophageal reflux disease without esophagitis 12/16/2016 Patrizia Keen Final K58.9 Irritable bowel syndrome without diarrhea 12/16/2016 Patrizia Keen Final R19.7 Diarrhea, unspecified 01/07/2017 Galen, Final H60.90 Unspecified otitis Dominguez A externa, unspecified ear 01/07/2017 Aaron, Final R51 Headache Dominguez A 02/09/2017 Nikos Wilde Final J06.9 Acute upper respiratory infection, unspecified 02/09/2017 Nikos Wilde Final R51 Headache 03/11/2017 Nikos Wilde Final M54.5 Low back pain 04/12/2017 Nikos Wilde Final M54.42 Lumbago with sciatica, left side 05/04/2017 KARIS GUAJARDO, M43.16 Spondylolisthesis, KARIS GUAJARDO, JUAN S lumbar region JUAN S 05/04/2017 KARIS GUAJARDO, M47.26 Other spondylosis KARIS GUAJARDO, JUAN S with radiculopathy, [facility] lumbar region 05/04/2017 KARIS GUAJARDO, M54.16 Radiculopathy, lumbar KARIS GUAJARDO, JUAN S region JUAN S 05/04/2017 KARIS GUAJARDO, M54.5 Low back pain KARIS GUAJARDO, JUAN S JUAN S 05/23/2017 Nikos Wilde Final Z00.00 Encounter for general adult medical examination without abnormal findings 08/01/2017 KARIS GUAJARDO, M54.5 Low back pain KARIS GUAJARDO, JUAN S JUAN S 08/02/2017 Nikos Wilde Final J20.9 Acute bronchitis, unspecified 08/18/2017 Vinny Rivero Final E86.0 Dehydration 08/18/2017 Patrizia Keen Final E86.0 Dehydration 08/18/2017 Patrizia Keen Final K58.9 Irritable bowel syndrome without diarrhea 08/18/2017 Patrizia Keen Final R19.7 Diarrhea, unspecified 10/18/2017 KARIS GUAJARDO, M43.16 Spondylolisthesis, KARIS GUAJARDO, JUAN S lumbar region JUAN S 10/18/2017 KARIS GUAJARDO, M47.816 Spondylosis without KARIS GUAJARDO, JUAN S myelopathy or JUAN S radiculopathy, lumbar region 10/18/2017 KARIS GUAJARDO, M48.06 Spinal stenosis, KARIS GUAJARDO, JUAN S lumbar region JUAN S 10/18/2017 KARIS GUAJARDO, M48.061 Spinal stenosis, KARIS GUAJARDO, JUAN S lumbar region without JUAN S neurogenic claudication 10/18/2017 KARIS GUAJARDO, M54.16 Radiculopathy, lumbar KARIS GUAJARDO, JUAN S region JUAN S 11/17/2017 KARIS GUAJARDO, M43.16 Spondylolisthesis, KARIS GUAJARDO, JUAN S lumbar region JUAN S 11/17/2017 KARIS GUAJARDO, M47.816 Spondylosis without KARIS GUAJARDO, JUAN S myelopathy or JUAN S radiculopathy, lumbar region 11/17/2017 KARIS GUAJARDO, M48.061 Spinal stenosis, KARIS GUAJARDO, JUAN S lumbar region without JUAN S neurogenic claudication 11/17/2017 KARIS GUAJARDO, M54.16 Radiculopathy, lumbar KARIS GUAJARDO, JUAN S region JUAN S 12/05/2017 KARIS GUAJARDO, M43.16 Spondylolisthesis, KARIS GUAJARDO, JUAN S lumbar region JUAN S 12/05/2017 KARIS GUAJARDO, M47.816 Spondylosis without KARIS GUAJARDO, JUAN S myelopathy or JUAN S radiculopathy, lumbar region 12/05/2017 KARIS GUAJARDO, M54.16 Radiculopathy, lumbar KARIS GUAJARDO, JUAN S region JUAN S 01/30/2018 MELI GUAJARDO, MAURISIO M54.32 Sciatica, left side E 02/14/2018 Patrizia Keen Final K58.9 Irritable bowel syndrome without diarrhea 02/14/2018 Patrizia Keen Final K21.9 Gastro-esophageal reflux disease without esophagitis 02/14/2018 Patrizia Keen Final R19.7 Diarrhea, unspecified 03/06/2018 KARIS GUAJARDO, M43.16 Spondylolisthesis, KARIS GUAJARDO, JUAN S lumbar region JUAN S 03/06/2018 KARIS GUAJARDO, M47.816 Spondylosis without KARIS GUAJARDO, JUAN S myelopathy or JUAN S radiculopathy, lumbar region 03/06/2018 KARIS GUAJARDO, M54.16 Radiculopathy, lumbar KARIS GUAJARDO, JUAN S region JUAN S 03/22/2018 KARIS GUAJARDO, M54.16 Radiculopathy, lumbar KARIS GUAJARDO, JUAN S region JUAN S 04/06/2018 KARIS GUAJARDO, M43.16 Spondylolisthesis, KARIS GUAJARDO, JUAN S lumbar region JUAN S 04/06/2018 KARIS GUAJARDO, M47.816 Spondylosis without KARIS GUAJARDO, JUAN S myelopathy or JUAN S radiculopathy, lumbar region 04/06/2018 KARIS GUAJARDO, M54.16 Radiculopathy, lumbar KARIS GUAJARDO, JUAN S region JUAN S Procedures Code [place] [address] Immunization 02/27/2016 administration (includes percutaneous, intradermal, subcutaneous, or intramuscular injections); 1 vaccine (single or combination vaccine/toxoid).. 29907 Pneumococcal 02/27/2016 conjugate vaccine, 13 valent (PCV13), for intramuscular use 06902 Office or 04/20/2016 other outpatient visit for the evaluation and management of an established patient, which requires at least 2 of these 3 chamorro components: A detailed history; A detailed examination; Medical d 94253 Office or 05/26/2016 other outpatient visit for the evaluation and management of an established patient, which requires at least 2 of these 3 chamorro components: An expanded problem focused history; An expanded prob 32250 Office or 06/17/2016 other outpatient visit for the evaluation and management of a new patient, which requires these 3 chamorro components: An expanded problem focused history; An expanded problem focused examination 35530 Immunization 07/08/2016 administration (includes percutaneous, intradermal, subcutaneous, or intramuscular injections); 1 vaccine (single or combination vaccine/toxoid).. 69852 Office or 07/15/2016 other outpatient visit for the evaluation and management of an established patient, which requires at least 2 of these 3 chamorro components: An expanded problem focused history; An expanded prob 74070 Injection(s); 12/06/2016 single or multiple trigger point(s), 1 or 2 muscle(s) 58824 Office or 12/06/2016 other outpatient visit for the evaluation and management of an established patient, which requires at least 2 of these 3 chamorro components: A detailed history; A detailed examination; Medical d 88130 Injection, 12/09/2016 anesthetic agent; greater occipital nerve 53101 Radiologic 12/09/2016 examination, spine, cervical; 4 or 5 views.. 01978 Office or 12/09/2016 other outpatient visit for the evaluation and management of an established patient, which requires at least 2 of these 3 chamorro components: An expanded problem focused history; An expanded prob 68367 Office or 12/16/2016 other outpatient visit for the evaluation and management of an established patient, which requires at least 2 of these 3 chamorro components: A detailed history; A detailed examination; Medical d 65382 Office or 01/05/2017 other outpatient visit for the evaluation and management of an established patient, which requires at least 2 of these 3 chamorro components: A detailed history; A detailed examination; Medical d 50512 Office or 02/09/2017 other outpatient visit for the evaluation and management of an established patient, which requires at least 2 of these 3 chamorro components: A detailed history; A detailed examination; Medical d 81208 Injection(s); 03/11/2017 single or multiple trigger point(s), 1 or 2 muscle(s) 30357 Office or 03/11/2017 other outpatient visit for the evaluation and management of an established patient, which requires at least 2 of these 3 chamorro components: An expanded problem focused history; An expanded prob 16582 Office or 04/12/2017 other outpatient visit for the evaluation and management of an established patient, which requires at least 2 of these 3 chamorro components: An expanded problem focused history; An expanded prob 71898 Office or 05/23/2017 other outpatient visit for the evaluation and management of an established patient, which requires at least 2 of these 3 chamorro components: An expanded problem focused history; An expanded prob 08991 Office or 08/02/2017 other outpatient visit for the evaluation and management of an established patient, which requires at least 2 of these 3 chamorro components: A problem focused history; A problem focused examinat 53362 Office or 08/18/2017 other outpatient visit for the evaluation and management of an established patient, which requires at least 2 of these 3 chamorro components: A comprehensive history; A comprehensive examination; 67179 Intravenous 08/18/2017 infusion, hydration; initial, 31 [place] 1 [place] [address] Office or 08/18/2017 other outpatient visit for the evaluation and management of an established patient, that may not require the presence of a physician or other qualified health healthcare administrative assistant. Usually, the [address] Office or 02/14/2018 other outpatient visit for the evaluation and management of an established patient, which requires at least 2 of these 3 chamorro components: A detailed history; A detailed examination; Medical d Results Test Result Range TSH with Reflex Free T4 - 04/20/16 12:03 TSH with Reflex Free T4 0.91 uIU/mL 0.35-4.94 TSH with Reflex Free T4 - 12/09/16 15:13 TSH with Reflex Free T4 4.24 uIU/mL 0.35-4.94 L100.0050 - 05/11/17 22:50 WBC - WHITE BLOOD COUNT 10.7 T/MM3 4.5-11.0 RED BLOOD COUNT 3.81 M/MM3 4.00-5.20 HGB - HEMOGLOBIN 12.2 GM/DL 12-16 HCT - HEMATOCRIT 37.0 % 36-46 MEAN CORPUSCULAR VOLUME 97.1 UM3 80-100 MEAN CORPUSCULAR HGB 32.0 UUG 26-34 MEAN CORPUSCULAR HGB CONC(MCHC 33.0 GM/DL 31-37 RDW STANDARD DEVIATION 44.8 FL 36.9-50.2 PLT - PLATELET COUNT 299 T/MM3 130-400 MEAN PLATELET VOLUME 9.5 UM3 9.4-12.4 NEUTROPHILS % (AUTO) 50.1 % 33-66 LYMPHOCYTES % (AUTO) 38.8 % 23-45 MONOCYTES % (AUTO) 9.0 % 0-9.0 EOSINOPHILS % (AUTO) 0.9 % 0-4 BASOPHILS % (AUTO) 0.9 % 0-2 IMMATURE GRANULOCYTE % (AUTO) 0.3 % 0.0-0.5 NEUTROPHILS # (AUTO) 5.3 T/MM3 1.8-7.7 LYMPHOCYTES # (AUTO) 4.1 T/MM3 1-4.8 MONOCYTES # (AUTO) 1.0 T/MM3 0-0.8 EOSINOPHILS # (AUTO) 0.1 T/MM3 0-0.5 BASOPHILS # (AUTO) 0.1 T/MM3 0-0.2 IMMATURE GRANULOCYTE # (AUTO) 0.03 T/MM3 0.00-0.03 L200.0010 - 05/11/17 22:50 FUNGAL CULTURE. 1.0 MG/DL 0.7-1.2 FUNGAL CULTURE, BLOOD. 18 RATIO 6-26 NA - Sodium 134 MEQ/L 134-144 Potassium 3.9 MEQ/L 3.6-5 Chloride 100 MEQ/L 98-107 CO2 - Carbon Dioxide 26 MEQ/L 22-30 Anion Gap 8 MEQ/L 5-15 BUN - Blood Urea Nitrogen 18.0 MG/DL 7-17 Glomerular Filtration Rate 55 NRG Glucose 107 MG/DL 65-110 Osmolality,Calculated 260 MOSM/KG 261-280 Calcium 8.9 MG/DL 8.4-10.2 Bilirubin,Total 0.40 MG/DL 0.20-1.30 Bilirubin,Unconjugated 0.10 MG/DL 0.00-11.10 Bilirubin,Conjugated 0.00 MG/DL 0.00-0.30 Alkaline Phosphatase 56 U/L 38-126 AST - Aspartate Amino Transfer 24 U/L 14-36 ALT 37 U/L 9-52 TP - Total Protein 6.3 G/DL 6.3-8.2 Albumin Level 3.9 G/DL 3.5-5.0 Globulin 2.4 G/DL 2.4-3.6 Albumin/Globulin Ratio 1.6 RATIO 1.1-2.2 LICTERUS < 2 0-7 LHEMOLYSIS < 15 0-25 LTURBIDITY < 20 0-20 L200.3850 - 05/11/17 22:50 TSH - Thyroid Stim Hormone 6.21 MIU/L 0.47-4.68 L600.0100 - 05/11/17 23:23 POTASSIUM Urine, Clean Catch NRG CHLORIDE YELLOW YELLOW ANION GAP CLEAR NRG BLOOD UREA NITROGEN 5.5 5.0-8.0 BUN/CREATININE RATIO NEGATIVE NEGATIVE GLUCOSE NEGATIVE NEGATIVE CALCIUM NEGATIVE NEGATIVE BILIRUBIN, CONJUG & UNCONJUG NEGATIVE NEGATIVE Specific Udall,Urine <=1.005 1.015-1.025 Leukocyte Esterase,Urine NEGATIVE NEGATIVE Nitrate,Urine NEGATIVE NEGATIVE Urobilinogen,Urine 0.2 EU/DL NORMAL Occult Blood,Urine - Dipstick NEGATIVE NEGATIVE Urine Microscopic (UA) Microscopic Not Ind. NRG L200.4150 - 05/12/17 00:00 Prealbumin 26.0 MG/DL 17.6-36.0 L200.6775 - 05/12/17 00:00 HgbA1c - Hemoglobin A1C 5.3 % 6.1-7.9 L200.2360 - 05/12/17 00:00 Vitamin B12 - Batch 310 PG/ML 239-931 L200.2365 - 05/12/17 00:00 Folate-Batch 16.2 NG/ML 2.76-20 L550.1275 - 05/12/17 00:00 RPR - Rapid Plasma Reagin Non-Reactive NonReactive L200.1350 - 05/12/17 00:00 Triglycerides - Batch 161 MG/DL 35-135 Cholesterol - Batch 225 MG/DL 132-199 LDL Cholesterol,Calculated 144.8 66-159 VLDL Cholesterol 32.2 MG/DL 0-28 HDL Cholesterol, Direct -Batch 48 MG/DL 40-60 Chol/HDL Ratio 4.7 RATIO 0-4.0 L750.6520 - 05/13/17 19:01 Methylmalonic Acid - AMS 0.34 nmol/mL <=0.40 Hemoglobin A1C - 05/23/17 11:20 Hemoglobin A1C 5.5 % 4.1-5.6 Estimated Average Glucose - 05/23/17 11:20 Estimated Average Glucose 111.2 mg/dL Encounters ACCT No. Visit Discharge Status Pt. Type Provider Facility Loc./Unit Complaint Date/Time [id number] 01/03/2014 01/03/2014 CLS Outpatie 17:07:00 23:59:59 nt [id number] 11/23/2013 11/23/2013 CLS Outpatie 08:11:00 23:59:59 nt [id number] 04/06/2018 04/06/2018 DIS Jordana Patel F/U -Low Back 339 09:55:00 10:27:00 kendal GUAJARDO, Ortho & Pain [facility] Sports S Medicine [id number] 03/22/2018 03/22/2018 HIRAM Patel M54.16 470 09:54:00 09:55:00 kendal GUAJARDO, Medical Radiculopathy [facility] , lumbar S region [id number] 03/06/2018 03/06/2018 DIS Outpatimike Patel F/U-Low Back 632 09:53:00 10:26:00 nt , Ortho & Pain [facility] Sports S Medicine [id number] 01/30/2018 01/30/2018 Preston Chavira MD leg/ back 922 09:06:00 10:22:00 y [facility] [id number] 12/30/2017 12/30/2017 CLS Preadmit Preston WILDE DO R41.3 Other 570 14:00:00 23:59:59 NIKOS Lundberg [facility] amnesia [place] [id number] 12/22/2017 12/22/2017 DIS Outpatimike WILDE DO WC.BC SCREEN 123 08:49:00 08:50:00 nt NIKOS Lundberg [id number] 12/05/2017 12/05/2017 DIS Outpatie KARIS Patel F/U-Low Back 942 09:56:00 10:55:00 nt , Ortho & Pain [facility] Sports Medicine [id number] 11/21/2017 11/21/2017 DIS Outpatimike Patel M54.16; 024 12:43:00 12:44:00 nt , Medical M43.16; [facility] M47.816; S M48.06 [id number] 11/17/2017 11/17/2017 DIS Outpatimike Patel F/U-Low Back 550 09:26:00 11:00:00 nt , Ortho & Pain [facility] Sports Medicine [id number] 10/24/2017 10/24/2017 DIS Outpatie KARIS Patel M47.816 487 10:03:00 10:04:00 nt , Medical Spondylosis;M [facility] 43.16; M48.06 S Stenosi;M54.1 6 [id number] 10/18/2017 10/18/2017 DIS Outpatie KARIS Patel F/U Low Back 502 09:02:00 10:27:00 nt , Ortho & Pain [facility] Sports S Medicine [id number] 09/05/2017 09/05/2017 DIS Outpatimike Patel M54.16 602 09:14:00 09:15:00 nt , Medical Radiculopathy [facility] ; M48.06; S M43.16; M47.816 [id number] 08/22/2017 08/22/2017 DIS Outpatimike DYSON Preston Low back pain 692 09:26:00 10:28:00 nt MD, Ortho & JUAN Sports S Medicine [id number] 08/10/2017 08/10/2017 DIS Outpatie KARISLux Patel M54.5 Low 938 09:28:00 09:29:00 nt , Medical Back Pain [facility] S [id number] 08/01/2017 08/01/2017 DIS Outpatie KARIS Patel F/U - Low 030 11:19:00 12:02:00 nt , Ortho & Back Pain [facility] Sports Medicine [id number] 05/12/2017 05/16/2017 DIS Inpaticallie Patel Unspecified 573 03:19:00 12:45:00 t , [facility] R Center spectrum/psyc hotic disor [id number] 05/04/2017 05/04/2017 DIS Outpatimike KARIS Patel low back pain 122 13:53:00 16:11:00 nt , Ortho & [facility]UAN Sports S Medicine [id number] 11/27/2016 11/27/2016 DIS Emergenc Preston PIERCE CCC.NEW 665 11:04:00 12:40:[address] [facility] [id number] 11/01/2016 11/01/2016 CLS Outpatie Preston PATEL WC.BC 052 08:39:00 23:59:59 nt [facility] [id number] 11/01/2017 Document 635 11:12:00 Registra tion [id number] 02/14/2018 02/14/2018 DIS Outpatie Osmani, Via [facility] Mur 6 MONTH 365 11:11:00 23:59:00 nt Patrizia Lamas [facility] [id number] 08/18/2017 08/18/2017 DIS Outpatie Mat, [facility] Mur IC icm gastro 227 11:11:00 23:59:00 nt Vinny Lamas sent down for Clinic saline drip [id number] 08/18/2017 08/18/2017 DIS Outpatie Wooden, [facility] Mur RECHECK 236 09:56:00 23:59:00 nt Patrizia Edwards [facility] [id number] 08/02/2017 08/02/2017 DIS Outpatie Chani, Via [facility] New FM sore throat 763 13:23:00 23:59:00 nt Nikos N [facility] cough Clinic [id number] 05/23/2017 05/23/2017 DIS Outpatie Chani, Via [facility] New FM PHYSICAL 573 10:37:00 23:59:00 nt Nikos N [facility] [id number] 04/12/2017 04/12/2017 DIS Outpatie Chani, Via [facility] New FM ONGOING LOWER 803 10:46:00 23:59:00 nt Nikos Gonzalezi BACK AND LEFT Clinic LEG PAIN NO KNOWN INJ [id number] 03/11/2017 03/11/2017 DIS Outpatie Chani, Via [facility] New FM back pain 772 12:58:00 23:59:00 nt Nikos N [facility] [id number] 02/09/2017 02/09/2017 DIS Outpatie Chani, Via [facility] New FM HEADACHE AND 509 09:18:00 23:59:00 nt Nikos Gonzalezi RT EAR ACHE Clinic X3-4 WKS [id number] 01/05/2017 01/05/2017 DIS Outpatie Aaron, Via [facility] New FM headache.righ 173 15:55:00 23:59:00 nt Dominguez Lamas t ear pain. A Clinic [id number] 12/16/2016 12/16/2016 DIS Outpatie Wooden, Via [facility] Mur MED REFILL 796 13:16:00 23:59:00 nt Patrizia Edwards [facility] [id number] 12/09/2016 12/09/2016 DIS Outpatie Chani, Via [facility] New FM neck pain 604 14:16:00 23:59:00 nt Nikos N [facility] [id number] 12/06/2016 12/06/2016 DIS Outpatie Chani, Via [facility] New FM headaches 046 10:17:00 23:59:00 nt Nikos N [facility] [id number] 07/15/2016 07/15/2016 DIS Outpatie Wooden, [facility] 2 WEEKS 681 10:26:00 23:59:00 nt Patrizia Edwards [facility] RECHECK FROM Clinic MEDICATION FOR DIARRHEA [id number] 07/08/2016 07/08/2016 DIS Outpatie Chani, Via [facility] New FM FLU INJ 216 13:50:00 23:59:00 nt Nikos Lamas Clinic [id number] 06/17/2016 06/17/2016 DIS Outpatie Chelsie, [facility] NPV/ Chronic 524 15:26:00 23:59:00 nt Luis Ybarra [facility] diarrhea Clinic [id number] 05/26/2016 05/26/2016 DIS Outpatie Chani, Via [facility] New FM TCPA Discuss 371 10:51:00 23:59:00 nt Nikos Lamas IBS issues Clinic [id number] 04/20/2016 04/20/2016 DIS Outpatie Chani, Via [facility] New FM Physical pt. 124 10:22:00 23:59:00 nt Nikos Lamas stated check Clinic up [id number] 02/27/2016 02/27/2016 DIS Outpatie Chani, Via [facility] New FM pneumo 23 117 12:55:00 23:59:00 nt Nikos Lundberg [facility] shot [facility] [id number] 12/17/2015 12/17/2015 DIS Outpatie Chani, Via [facility] New FM NPT EST CARE 166 14:22:00 23:59:00 nt Nikos Lamas VISIT Clinic [id number] 12/11/2015 12/11/2015 DIS Outpatie Aaron, Via [facility] New FM headaches 724 09:10:00 23:59:00 nt Dominguez [facility] A Clinic [id number] 10/14/2015 10/14/2015 DIS Outpatie Chani, [facility] New FM RIGHT FOOT 474 14:52:00 23:59:00 nt Nikos Lamas PAIN Clinic [id number] 08/20/2015 08/20/2015 DIS Outpatie Chani, Via [facility] New FM FLU SHOT 907 10:26:00 23:59:00 nt Nikos Gonzalezi Clinic [id number] 06/03/2015 06/03/2015 DIS Outpatie Tandoc, [facility] New FM pre op phy 397 13:45:00 23:59:00 nt Apurva E [facility] [id number] 06/03/2015 06/03/2015 DIS Outpatie Tandoc, [facility] pre op 188 12:56:00 23:59:00 nt Apurva E [facility] [id number] 04/29/2015 04/29/2015 DIS Outpatie Tandoc, [facility] New WWE 559 09:48:00 23:59:00 nt Apurva E [facility] [id number] 02/15/2018 Document [id number] 05:18:18 Registra tion [id number] 08/19/2017 Document [id number] 05:18:44 Registra tion [id number] 08/03/2017 Document [id number] 05:18:57 Registra tion [id number] 07/12/2017 Document [id number] 05:19:26 Registra tion [id number] 07/09/2017 Document [id number] 05:17:54 Registra tion [id number] 06/11/2017 Document [id number] 05:19:44 Registra tion [id number] 12/02/2016 12/02/2016 DIS Outpatie 13:54:14 13:54:14 nt [id number] 04/13/2017 Document [id number] 05:21:16 Registra tion [id number] 03/12/2017 Document [id number] 05:16:07 Registra tion [id number] 02/10/2017 Document [id number] 05:16:11 Registra tion [id number] 01/06/2017 Document [id number] 05:16:12 Registra tion [id number] 12/17/2016 Document [id number] 05:17:46 Registra tion [id number] 12/14/2016 Document [id number] 05:15:59 Registra tion [id number] 12/07/2016 Document [id number] 05:17:02 Registra tion [id number] 09/05/2016 Document [id number] 05:15:40 Registra tion [id number] 07/16/2016 Document [id number] 05:17:03 Registra tion [id number] 07/09/2016 Document [id number] 05:17:58 Registra tion [id number] 06/24/2016 Document [id number] 05:17:38 Registra tion [id number] 06/10/2016 Document [id number] 05:17:17 Registra tion [id number] 05/27/2016 Document [id number] 05:17:00 Registra tion [id number] 04/21/2016 Document [id number] 05:19:50 Registra tion [id number] 02/28/2016 Document [id number] 05:17:06 Registra tion [id number] 12/18/2015 Document [id number] 05:18:24 Registra tion [id number] 12/12/2015 Document [id number] 05:17:08 Registra tion [id number] 08/21/2015 Document [id number] 05:16:55 Registra tion [id number] 08/06/2015 Document [id number] 13:15:32 Registra tion [id number] 08/06/2015 Document [id number] 09:21:02 Registra tion [id number] 08/06/2015 Document [id number] 09:05:25 Registra tion [id number] 01/03/2014 01/03/2014 CLS Outpatie 17:07:00 23:59:59 nt [id number] 11/23/2013 11/23/2013 CLS Outpatie 08:11:00 23:59:59 nt
[2018-05-26] MEDS: SALINE FLUSH 10ml SYRINGE IVF PRN (08:45)
[2018-05-26] MEDS: LEVOFLOXACIN PB 750 MG/150 ML BAG IV SCH (08:52)
--- NOTE | 2018-05-26 09:17 | XRay Report ---
Indication: cough shortness of air crackles right question aspiration PROCEDURE: XR chest 1V: Encounter: Initial Comparison: May 13, 2017 Findings: New airspace disease in the right lower lobe. Left lung appears clear. No pneumothorax or definite effusion. Patient is rotated towards the right. Heart size and mediastinal contours are normal allowing for rotation. Pulmonary vascularity is normal. Impression: Right lower lobe pneumonia or aspiration. .
--- NOTE | 2018-05-26 11:02 | History & Physical Report ---
History of Present Illness Date: 05/26/18 Chief complaint: nausea, vomiting, diarrhea HPI: Patient is a 67-year-old female who presented to the emergency room with nausea , vomiting, diarrhea, and weakness. Her "careworker" who "helps" her and her brought her in to the ER. Symptoms have been going on for the past 24 hours. Patient denies abdominal pain. She was brought in by her family, and on arrival to the emergency room she was found to be tachycardic and hypotensive with 85% O2 sat on room air. She fit criteria for severe sepsis and has received her 30 mL/kg bolus in the emergency room. Chest x-ray in the ED revealed right lower lobe pneumonia. She did not have a fever in the emergency room. Her average heart rate is in the 110's. Blood pressures recorded are 70 - 80s/50, but it was reported that her blood pressures improved following the fluid bolus. Her creatinine baseline is 1.1 and was 3.3 in the ER, with BUN of 59. White count 12.1, hemoglobin 11.2. Liver enzymes are normal, lipase normal, lactate was 3.1. She had a negative GI panel. Patient's thinks pt has had a cough for a few weeks. It is difficult to get a clear history as pt and tend to give different answers. wants to make sure pt gets her psych meds as he reports she doesn't do well if she isn't on them. Patient is seen in her room on admission. She is A&O but is slow in her answers and can't remember some things such as where her daughter lives. She can't remember the last time she ate or when she last vomited or had diarrhea. She reports she has had vomiting and diarrhea x 2-3 days but thinks it has been 24 hours. She usually has no problems swallowing but states that in the past she has choked on things. Review of Systems All systems PM: 10-point ROS was reviewed, no additional remarkable complaints except (n/v/d, weakness, cough) Past Medical History Medical History: Medical History (Last Reviewed 05/26/18 @ 16:43 by Lesley Rose MD) Hypothyroidism (Chronic) Goiter (Chronic) Schizophrenia (Chronic) Lumbago (Chronic) Irritable bowel syndrome (Chronic) GERD (gastroesophageal reflux disease) (Chronic) Degenerative joint disease of cervical spine (Chronic) Cataract (Chronic) Benign hypertension (Chronic) Allergic rhinitis (Chronic) Surgical History: Left total knee. Right total knee. . Colonoscopy-. Cataract extraction Family History: Family History Father rectal cancer lung cancer Mother Breast cancer Cervical cancer Liver cancer High blood pressure Depression Cancer of spine Cancer of colon Family History: As Above - Social History Smoking status: Never smoker Substance use type: does not use Alcohol intake frequency: does not drink Housing: house Household members: spouse Current occupational status: retired Current residence: Apartment/Private Home Social history: PCP - Dr Wilde Psych - Josephine Briscoe Pt reports her is "handicapped." (possibly low functioning?) She reports they have a "careworker" who comes to their house on the weekdays. Medications Home Medications Medication Instructions Recorded Confirmed Type Levothyroxine Sodium 50 mcg PO DAILY #0 07/19/12 05/26/18 History Diazepam [Valium] 1 mg PO BID #30 tab 05/15/17 05/26/18 Rx Lisinopril [Prinivil] 2.5 mg PO DAILY #30 tab 05/16/17 05/26/18 Rx Cetirizine [Zyrtec] 10 mg PO DAILY 01/30/18 05/26/18 History Cyclobenzaprine [Flexeril] 10 mg PO BID PRN 01/30/18 05/26/18 History Eluxadoline [Viberzi] 100 mg PO BID 01/30/18 05/26/18 History Montelukast [Singulair] 10 mg PO HS 01/30/18 05/26/18 History OLANZapine [ZyPREXA] 10 mg PO HS 01/30/18 05/26/18 History Propranolol HCl 40 mg PO DAILY 01/30/18 05/26/18 History Ranitidine [Zantac] 150 mg PO BID 01/30/18 05/26/18 History Lactobacillus Acidophilus 1 cap PO DAILY 05/26/18 05/26/18 History [Probiotic] Ondansetron [Zofran Odt] 4 mg PO Q6HR PRN 05/26/18 05/26/18 History Allergies Allergy/AdvReac Type Severity Reaction Status Date / Time dextromethorphan Allergy Unknown Verified 04/06/18 10:13 guaifenesin Allergy Unknown Verified 05/26/18 09:21 hydrocodone Allergy Unknown HIVES, Verified 05/26/18 09:21 SKIN RASH oxaprozin Allergy Unknown Verified 05/26/18 09:21 paromomycin Allergy Unknown Verified 05/26/18 09:21 potassium guaiacolsulfonate Allergy Unknown Verified 04/06/18 10:13 propoxyphene Allergy Unknown Verified 05/26/18 09:21 [From [facility]] Exam Vital Signs: Temperature 98.2 F 05/26/18 08:19 Pulse Rate 114 H 05/26/18 08:45 Respiratory Rate 14 05/26/18 08:45 Blood Pressure 72/50 05/26/18 08:45 Pulse Oximetry 92 05/26/18 08:45 Height/Weight/BMI: Height 1.42 m Weight 53.8 kg - Constitutional Present: no acute distress, well nourished, well developed - Routine HEENT Exam Head: Present: normocephalic, atraumatic Eye: Present: EOMI, PERRL ENT: Present: mucous membranes moist, oropharynx clear - Routine Neck Exam Present: supple. Absent: lymphadenopathy, thyromegaly - Routine Respiratory Exam Present: crackles (RLL). Absent: wheezes - Routine Cardiovascular Exam Present: no murmur, tachycardia - Routine Abdominal Exam Present: soft, normoactive bowel sounds. Absent: tenderness, distended - Routine Extremities Exam Present: edema (tr b/l), normal capillary refill - Routine Skin Exam Present: dry, warm - Routine Neurological Exam Present: alert, oriented X3, CN II-XII intact speech is slow but clear. Tends to go off on tangents. - Routine Psychiatric Exam Present: normal affect, cooperative Results - Labs CBC & Chem 7: 05/26/18 08:48 05/26/18 08:48 Microbiology Results: Microbiology 05/26/18 08:59 Peripheral/Iv Start Blood Culture - Preliminary Culture Initiated - Results Pending 05/26/18 08:48 Peripheral/Iv Start Blood Culture - Preliminary Culture Initiated - Results Pending - Imaging and Cardiology Chest x-ray Additional comments: Date of Exam: 05/26/18 Indication: cough shortness of air crackles right question aspiration PROCEDURE: XR chest 1V: Findings: New airspace disease in the right lower lobe. Left lung appears clear. No pneumothorax or definite effusion. Patient is rotated towards the right. Heart size and mediastinal contours are normal allowing for rotation. Pulmonary vascularity is normal. Impression: Right lower lobe pneumonia or aspiration. Assessment and Plan (1) Acute renal failure Current visit: Yes Status: Acute (2) Aspiration pneumonia Current visit: Yes Status: Acute Assessment and Plan: Assessment Septic shock (SIRS: leukocytosis, tachy. Source: lungs. Lactate 3.1) Aspiration pneumonia-right lower lobe Nausea, vomiting, diarrhea- negative stool panel in ED ARF-POA Hypotension-POA Anemia - POA Hyperglycemia - POA Hypothyroidism Schizophrenia Irritable bowel syndrome GERD DJD of C-spine Hypertension Allergic rhinitis ? low functioning/?Mild MR Overweight -BMI 29 Plan Admit, IP. Stay expected to exceed 2 midnights given her septic shock and aspiration pneumonia. Patient was given IV Levaquin in ED for aspiration PNA. Start Unasyn (renal dosing) 1.5mg IV q 24 hrs IVF bolus completed in ER. Will continue maintenance IVF's. ST consult. Assuming she is cleared by ST, will continue her psych meds as reports pt does not do well if she goes w/o them. CXR from ER reviewed. Repeat in am. Check A1C given her hyperglycemia. Repeat CBC and BMP in am to follow blood counts, electrolytes and renal function. BC's, repeat lactate and UA are pending. Duonebs and acapella for pulmonary toilet. Zofran prn nausea. SCDs for DVT prophylaxis Pantoprazole IV for GI prophylaxis and abdominal pain CODE STATUS: Full code PCP-Dr. Wilde DVT Prophylaxis: SCD's GI Prophylaxis: Protonix Resuscitation Status: Full Code - Physician Narrative Physician: Lesley Rose MD Narrative: Date: 05/26/18 Time: 1639 I have independently evaluated and examined this patient. I reviewed the chart, the patient's history, and the [employer]OTH [employer]ING [employer]PERVISOR/PA's documented findings as above. We discussed and formulated the assessment and plan as above with additions as below: Mrs. Canales was seen with family members at bedside earlier this afternoon. Her reports that she had diarrhea and emesis yesterday morning with nausea throughout the day; no vomiting today although diarrhea has persisted. She was confused per 's report earlier and was subsequently found to be hypotensive prompting ER assessment. Following fluid administration she was described as being much more alert and interactive. Patient denies hematemesis or bloody diarrhea. No sick contacts. NAD, alert, soft-spoken Respirations nonlabored, good airflow, faint crackles mid and lower posterior and lateral right lung field Regular rhythm with low-grade tachycardia Abdomen soft, nontender, bowel sounds present Presenting blood pressure 88/51 with lowest reported blood pressure in ED 71/44 ; most recent blood pressure 115/65. Blood pressure consistently improved following 30 mL/kg fluid bolus administered in the ER; fluids ongoing at this time. Persistent low-grade tachycardia, oxygenating well. Chest x-ray by my review with right lower lobe, possible right middle lobe infiltrate. Minor leukocytosis, hemoglobin 12.2 prior to volume replacement, BUN 59, creatinine 3.3 with baseline of approximately 20/1.0 in April 2017. Lactic acid 3.1-0.8. Magnesium 1.4-IV supplementation initiated. Acute renal failure likely due to both hypotension and dehydration; reassess electrolytes/renal function later this afternoon. Hypotension may be result of infection but more likely volume related. Continue hydration. Antibiotics initiated for aspiration pneumonia empirically. Stool panel negative, clinical gastroenteritis preceded onset of symptoms. Clear liquids today, will advance diet tomorrow if no further nausea/vomiting. Discussed with Dr. Cerna. Hospital Course Summary Disclaimer: The visit summary below is not to be considered part of the above Progress Note. Hospital Course: 05/26/18 Admit, IP. Stay expected to exceed 2 midnights given her septic shock and aspiration pneumonia. Patient was given IV Levaquin in ED for aspiration PNA. Start Unasyn (renal dosing) 1.5mg IV q 24 hrs IVF bolus completed in ER. Will continue maintenance IVF's. ST consult. Assuming she is cleared by ST, will continue her psych meds as reports pt does not do well if she goes w/o them. CXR from ER reviewed. Repeat in am. Check A1C given her hyperglycemia. Repeat CBC and BMP in am to follow blood counts, electrolytes and renal function. BC's, repeat lactate and UA are pending. Duonebs and acapella for pulmonary toilet. Zofran prn nausea. SCDs for DVT prophylaxis Pantoprazole IV for GI prophylaxis and abdominal pain CODE STATUS: full code PCP-Dr. Wilde
[2018-05-26 11:04] VITALS: BMI 29.3
[2018-05-26] MEDS ORDERED: ONDANSETRON 4 MG/2 ML INJECTION IVP PRN (11:15)
[2018-05-26] MEDS: PANTOPRAZOLE 40 MG INJECTION IVP SCH (11:25)
[2018-05-26] MEDS: NS 1,000 ML IV SCH ×2 (11:25→18:13)
[2018-05-26] MEDS ORDERED: ONDANSETRON ODT 4 MG TABLET PO PRN (11:57)
[2018-05-26] MEDS ORDERED: SULBACTAM IV SCH (12:00)
[2018-05-26] MEDS ORDERED: AMPICILLIN IV SCH (12:00)
[2018-05-26] MEDS ORDERED: NS IV SCH (12:00)
[2018-05-26] MEDS: ALBUTEROL/IPRATROPIUM 2.5mg-0.5mg/3ml NEB AEROSOL SCH ×2 (14:08→19:14)
[2018-05-26] MEDS ORDERED: PNEUMOCOCCAL 13 VACCINE 0.5ml INJECTION IM ONE (14:41)
[2018-05-26] MEDS: MAGNESIUM SULFATE 1gm PREMIX 1 GM/100 ML BAG IV SCH ×2 (18:13→20:17)
[2018-05-26] MEDS ORDERED: METOCLOPRAMIDE 10mg/2ml INJECTION IVP PRN (19:40)
[2018-05-26] MEDS: ACETAMINOPHEN 325 MG TABLET PO PRN (20:17)
[2018-05-26] MEDS: MONTELUKAST 10 MG TABLET PO SCH (20:18)
[2018-05-26] MEDS: DIAZEPAM 2 MG TABLET PO SCH (20:18)
[2018-05-26] MEDS: OLANZapine 10 MG TABLET PO SCH (20:18)
[2018-05-26] MEDS: ELUXADOLINE 100 MG PO SCH (20:19)
[2018-05-27] MEDS: NS 1,000 ML IV SCH ×3 (02:13→23:42)
[2018-05-27] MEDS: LEVOTHYROXINE 50 MCG TABLET PO SCH (05:54)
[2018-05-27] MEDS: ALBUTEROL/IPRATROPIUM 2.5mg-0.5mg/3ml NEB AEROSOL SCH ×4 (07:06→19:26)
[2018-05-27] MEDS ORDERED: ALBUTEROL/IPRATROPIUM 2.5mg-0.5mg/3ml NEB AEROSOL PRN ×2 (08:49→19:47)
[2018-05-27] MEDS ORDERED: RENAL DOSING - PHARMACY CONSULT MC ONE (08:50)
[2018-05-27] MEDS: LACTOBACILLUS (15B cfu) CAPSULE PO SCH (09:00)
[2018-05-27] MEDS: PANTOPRAZOLE 40 MG INJECTION IVP SCH (09:00)
[2018-05-27] MEDS: ACETAMINOPHEN 325 MG TABLET PO PRN (09:01)
[2018-05-27] MEDS: DIAZEPAM 2 MG TABLET PO SCH ×2 (09:01→21:08)
[2018-05-27] MEDS: ELUXADOLINE 100 MG PO SCH ×2 (09:03→21:09)
[2018-05-27] MEDS: LEVOFLOXACIN PB 750 MG/150 ML BAG IV SCH (10:32)
[2018-05-27] MEDS: AMPICILLIN/SULBACTAM 3 G in NS 100 ML IV SCH ×2 (12:02→23:41)
[2018-05-27] MEDS: PROPRANOLOL 20 MG TABLET PO SCH (12:03)
--- NOTE | 2018-05-27 16:36 | Progress Note ---
- Date 05/27/18 Subjective: Tonia was seen earlier today while up in a chair; her was present and asked if she had dementia. I advised him that I don't have access to her outpatient records or prior workup that would be needed to make this diagnosis. Both he and nursing indicated the patient has not been speaking today other than occasional word or 2. She's had no nausea or vomiting and no diarrhea. When reevaluated this afternoon she was resting in bed comfortably and followed verbal commands and nod her head yes and no to questions. She occasionally mouth a word but did not actually speak. She indicated she was not having pain or difficulty breathing. Nursing reports that she has ambulated using both legs symmetrically. reports patient did not sleep at all overnight or since arrival. Objective Vital signs: Temperature 100.7 F H 05/27/18 16:00 Pulse Rate 92 05/27/18 16:00 Respiratory Rate 16 05/27/18 16:00 Blood Pressure 162/92 H 05/27/18 16:00 Pulse Oximetry 97 05/27/18 16:00 I/O 5365/1320 NAD, regards examiner, follow simple commands, nonverbal Conjugate gaze, EOMI, conjunctiva clear, facial structure symmetric, tongue midline Respirations nonlabored, shallow respirations with blowing/purse lip expiration at rest but full inspiratory effort when asked to take deep breaths, inspiratory /expiratory crackles on the right posteriorly, no wheezing appreciated Regular rhythm, S1-S2 Abdomen soft, nontender, active bowel sounds Extremities without edema 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, raises both arms in the air symmetrically, withdraws extremities slightly to stimulation Skin without rash or evidence of wounds Height/Weight/BMI: Height 1.42 m Weight 63.3 kg Body Mass Index 29.3 Results - Labs CBC & Chem 7: 05/27/18 04:12 05/27/18 04:12 Labs: TSH 1.0 Respiratory viral panel negative Microbiology Results: Microbiology 05/26/18 12:15 Urine, Voided (Cc/notcc) Urine Culture - Final Mixed Bacterial Gayathri 05/26/18 08:48 Peripheral/Iv Start Blood Culture - Preliminary No Growth After 1 Day 05/26/18 08:59 Peripheral/Iv Start Blood Culture - Preliminary No Growth After 1 Day - Imaging and Cardiology Chest x-ray Status: image reviewed by me (rotated, mild elevation of the left hemidiaphragm , persistent infiltrate on the right) Assessment and Plan (1) Acute renal failure Current visit: Yes Status: Acute (2) Aspiration pneumonia Current visit: Yes Status: Acute Assessment and Plan: Assessment: Septic shock (SIRS: leukocytosis, tachy. Source: lungs. Lactate 3.1) Aspiration pneumonia-right lower lobe Nausea, vomiting, diarrhea- negative stool panel in ED ARF-POA Hypotension-POA Anemia - POA Hyperglycemia - POA, resolved Hypothyroidism Schizophrenia Irritable bowel syndrome GERD DJD of C-spine Hypertension Allergic rhinitis ? low functioning/?Mild MR Overweight -BMI 29 Hypomagnesemia-POA, resolved Altered mental status-05/27/18 Plan: Blood pressure slightly elevated today, propranolol resumed this morning. Lisinopril on hold pending further improvement in renal function. Rate of IV fluids decreased, hemodynamically stable and renal function improving. Creatinine 3.3-2.4-1.9; continue to monitor. Pneumonia radiographically stable with hydration. Continue Unasyn-dose adjusted for improved renal function. Continue breathing treatments. Low-grade present today, continue to monitor. Urine with mixed species-treatment not indicated. A1C 5.5; suspect hyperglycemia stress-induced. Fasting glucose this morning normal. In retrospect I believe low blood pressures and lactic acidosis or due to hypovolemia rather than septic shock. Altered mental status present today, exam nonfocal and patient follows commands appropriately. Ambulating per nursing report. Has not slept since admission. Reassess mental status tomorrow, if remains altered will image by CT head. Home psychiatric regimen continued. DVT Prophylaxis: SCD's GI Prophylaxis: Protonix Resuscitation Status: Full Code - Physician Narrative Narrative: Date: 05/27/18 Time: 1633 Hospital Course Summary Disclaimer: The visit summary below is not to be considered part of the above Progress Note. Hospital Course: 05/26/18 Admit, IP. Stay expected to exceed 2 midnights given her septic shock and aspiration pneumonia. Patient was given IV Levaquin in ED for aspiration PNA. Start Unasyn (renal dosing) 1.5mg IV q 24 hrs IVF bolus completed in ER. Will continue maintenance IVF's. ST consult. Assuming she is cleared by ST, will continue her psych meds as reports pt does not do well if she goes w/o them. CXR from ER reviewed. Repeat in am. Check A1C given her hyperglycemia. Repeat CBC and BMP in am to follow blood counts, electrolytes and renal function. BC's, repeat lactate and UA are pending. Duonebs and acapella for pulmonary toilet. Zofran prn nausea. SCDs for DVT prophylaxis Pantoprazole IV for GI prophylaxis and abdominal pain CODE STATUS: full code PCP-Dr. Wilde 05/27/18 Blood pressure slightly elevated today, propranolol resumed this morning. Lisinopril on hold pending further improvement in renal function. Rate of IV fluids decreased, hemodynamically stable and renal function improving. Creatinine 3.3-2.4-1.9; continue to monitor. Pneumonia radiographically stable with hydration. Continue Unasyn-dose adjusted for improved renal function. Low-grade present today, continue to monitor. Urine with mixed species-treatment not indicated. A1C 5.5; suspect hyperglycemia stress-induced. Fasting glucose this morning normal. In retrospect I believe low blood pressures and lactic acidosis or due to hypovolemia rather than septic shock. Altered mental status present today, exam nonfocal and patient follows commands appropriately. Ambulating per nursing report. Has not slept since admission. Reassess mental status tomorrow, if remains altered will image by CT head. Home psychiatric regimen continued.
[2018-05-27] MEDS ORDERED: FALL RISK - PHARMACY CONSULT MC ONE (18:08)
[2018-05-27] MEDS: MONTELUKAST 10 MG TABLET PO SCH (21:08)
[2018-05-27] MEDS: OLANZapine 10 MG TABLET PO SCH (21:08)
[2018-05-28] MEDS: ZOLPIDEM 5 MG TABLET PO PRN (00:37)
[2018-05-28] MEDS: LEVOTHYROXINE 50 MCG TABLET PO SCH (06:20)
[2018-05-28] MEDS: LACTOBACILLUS (15B cfu) CAPSULE PO SCH (09:13)
[2018-05-28] MEDS: ELUXADOLINE 100 MG PO SCH ×2 (09:13→20:51)
--- NOTE | 2018-05-28 09:13 | Progress Note ---
- Date 05/28/18 Subjective: Tonia is seen this morning following phone call from nursing staff about breathing pattern changed. Pt is seen laying in bed with at her side. She is alert with eyes open however will not verbally answer questions of follow commands. She is noted to by tachypneic breathing 38 times a minute with pursed lip breathing. She is noted to have a expiratory wheeze or "sweak". Breathing sounds somewhat diminished and tight. She is noted to have subcutaneous swelling on the anterior aspect of her neck that husbands notes is not normal for her. He room air sats are 97%. BP elevated at 175/93. Temp max last night of 100.7 Objective Vital signs: Temperature 97.7 F 05/28/18 08:33 Pulse Rate 93 05/28/18 08:33 Respiratory Rate 38 H 05/28/18 08:33 Blood Pressure 175/93 H 05/28/18 08:33 Pulse Oximetry 97 05/28/18 08:33 Height/Weight/BMI: Height 1.42 m Weight 63.3 kg Body Mass Index 29.3 - Constitutional Present: mild distress, well nourished, well developed - Routine HEENT Exam Eye: Present: EOMI ENT: Present: mucous membranes moist, dentition normal - Routine Respiratory Exam Present: wheezes (expiratory), diminished air movement - Routine Cardiovascular Exam Present: RRR, S1, S2. Absent: murmur - Routine Abdominal Exam Present: soft, normoactive bowel sounds, non distended. Absent: tenderness - Routine Extremities Exam Present: edema (Bilateral lower ext ), normal capillary refill - Routine Skin Exam Present: intact, dry, warm - Routine Neurological Exam Present: alert, oriented X3, CN II-XII intact - Routine Lymphatic Exam Lymphatic: Absent: adenopathy - Routine Psychiatric Exam Present: normal affect Results - Labs CBC & Chem 7: 05/28/18 04:45 05/28/18 04:45 Microbiology Results: Microbiology 05/26/18 12:15 Urine, Voided (Cc/notcc) Urine Culture - Final Mixed Bacterial Gayathri 05/26/18 08:48 Peripheral/Iv Start Blood Culture - Preliminary No Growth After 1 Day 05/26/18 08:59 Peripheral/Iv Start Blood Culture - Preliminary No Growth After 1 Day Assessment and Plan (1) Acute renal failure Current visit: Yes Status: Acute (2) Aspiration pneumonia Current visit: Yes Status: Acute Assessment and Plan: Assessment: Septic shock (SIRS: leukocytosis, tachy. Source: lungs. Lactate 3.1) Aspiration pneumonia-right lower lobe Nausea, vomiting, diarrhea- negative stool panel in ED ARF-POA Hypotension-POA Anemia - POA Hyperglycemia - POA, resolved Hypothyroidism Schizophrenia Irritable bowel syndrome GERD DJD of C-spine Hypertension Allergic rhinitis ? low functioning/?Mild MR Overweight -BMI 29 Hypomagnesemia-POA, resolved Altered mental status-05/27/18 Plan: Will obtain ABG now and place on C-pap to help with pursed lip breathing Patient remains non-verbal and will not follow commands today. is concerned about decline in mental status Given decline in mental status will obtain CT of brain with and without contrast Use caution with PO intake - concern for dysphagia/aspiration Continue on Unasyn IV for treatment of pneumonia Renal function continues to improve- Nematologist today 1.1 Continue with psych medications Plan of care reviewed with nursing staff, RT and DVT Prophylaxis: SCD's GI Prophylaxis: Protonix Resuscitation Status: Full Code - Physician Narrative Physician: Lesley Rose MD Narrative: Date: 05/28/18 Time: 1530 I have independently evaluated and examined this patient. I reviewed the chart, the patient's history, and the OIL LEASE OPERATOR/PA's documented findings as above. We discussed and formulated the assessment and plan as above with additions as below: Tonia was seen initially at approximately 10:00 this morning at which time she was on BiPAP, awake, and followed simple commands including squeezing my fingers , raising her arms symmetrically to request, and closing her eyes when asked to do so. I reassessed later in the day when she was off BiPAP and she mouth one- word in response to a question and then made no other attempts at verbalization but again followed simple commands and sat up in bed without difficulty to allow me to listen to her lungs. Alert, mute; unremarkable respiratory pattern when seen this afternoon Respirations nonlabored, diminished airflow, faint crackles posteriorly but improved from prior days Moving all extremities well with symmetric power upper extremities, withdraws lower extremities to stimulation weakly ABG 7.45/31/73/[address] head with and without reviewed by myself-no acute pathology, no masses visualized Metabolic acidosis is resolved; serum iron level low as is TIBC; B-12 pending although review of old records indicate B-12 was low-nl at 310 in April 2017 at which time a methylmalonic acid was normal at 0.34 nmol per milliliter. Patient's again references an episode a year ago when the patient was mute prior to hospitalization in [facility]. Admission note reviewed and refers to patient having auditory hallucinations and she was speaking at the time of admission. I can't exclude the possibility that she was mute prior to admission but it isn't referenced in the note. Stay on [employer] was brief. Patient did have SLUMS testing during the hospitalization with score of 13/30. Renal failure is improving progressively, continue fluids as oral intake restricted today with CPAP use. Repeat chest x-ray in a.m., Unasyn dose again modified given improved renal function. Blood pressure persistently elevated today-resume lisinopril; may require higher dose. Plan psychiatric consultation in the morning. Hospital Course Summary Disclaimer: The visit summary below is not to be considered part of the above Progress Note. Hospital Course: 05/26/18 Admit, IP. Stay expected to exceed 2 midnights given her septic shock and aspiration pneumonia. Patient was given IV Levaquin in ED for aspiration PNA. Start Unasyn (renal dosing) 1.5mg IV q 24 hrs IVF bolus completed in ER. Will continue maintenance IVF's. ST consult. Assuming she is cleared by ST, will continue her psych meds as reports pt does not do well if she goes w/o them. CXR from ER reviewed. Repeat in am. Check A1C given her hyperglycemia. Repeat CBC and BMP in am to follow blood counts, electrolytes and renal function. BC's, repeat lactate and UA are pending. Duonebs and acapella for pulmonary toilet. Zofran prn nausea. SCDs for DVT prophylaxis Pantoprazole IV for GI prophylaxis and abdominal pain CODE STATUS: full code PCP-Dr. Wilde 05/27/18 Blood pressure slightly elevated today, propranolol resumed this morning. Lisinopril on hold pending further improvement in renal function. Rate of IV fluids decreased, hemodynamically stable and renal function improving. Creatinine 3.3-2.4-1.9; continue to monitor. Pneumonia radiographically stable with hydration. Continue Unasyn-dose adjusted for improved renal function. Low-grade present today, continue to monitor. Urine with mixed species-treatment not indicated. A1C 5.5; suspect hyperglycemia stress-induced. Fasting glucose this morning normal. In retrospect I believe low blood pressures and lactic acidosis or due to hypovolemia rather than septic shock. Altered mental status present today, exam nonfocal and patient follows commands appropriately. Ambulating per nursing report. Has not slept since admission. Reassess mental status tomorrow, if remains altered will image by CT head. Home psychiatric regimen continued. 05/28/18 Will obtain ABG now and place on C-pap to help with pursed lip breathing Patient remains non-verbal and will not follow commands today. is concerned about decline in mental status Given decline in mental status will obtain CT of brain with and without contrast Use caution with PO intake - concern for dysphagia/aspiration Continue on Unasyn IV for treatment of pneumonia Renal function continues to improve- Nematologist today 1.1 Continue with psych medications Plan of care reviewed with nursing staff, RT and
[2018-05-28] MEDS: DIAZEPAM 2 MG TABLET PO SCH ×2 (09:14→20:49)
[2018-05-28] MEDS: PROPRANOLOL 20 MG TABLET PO SCH (09:16)
[2018-05-28] MEDS ORDERED: IOHEXOL 300mg/ml 50ml INJECTION ONE (09:16)
[2018-05-28] MEDS ORDERED: SALINE FLUSH 10ml SYRINGE ONE (09:16)
[2018-05-28] MEDS: PANTOPRAZOLE 40 MG INJECTION IVP SCH (09:16)
[2018-05-28] MEDS: AMPICILLIN/SULBACTAM 3 G in NS 100 ML IV SCH ×3 (11:34→23:55)
--- NOTE | 2018-05-28 12:41 | CT Scan Report ---
Indication: Mental status change PROCEDURE: CT head/brain wo/w con: Encounter: Initial Comparison: Head CT dated May 13, 2017 Technique: Axial CT images through the head were performed without and with IV contrast. Iterative Reconstruction dose reducing technique was utilized. Contrast: Omnipaque 300 46mL FINDINGS: The ventricles are of normal size, shape, and contour for the patient's age. The brainstem, cerebellum, and cerebral hemispheres have a normal morphology and CT attenuation. No hemorrhage, mass effect, mass lesions, or edema is evident. No areas of abnormal enhancement are seen. The visualized portions of the skull base, sinuses, and calvarium demonstrate no abnormality. IMPRESSION: Unremarkable head CT for the patient's age, both before and after contrast. There is a preliminary report by [facility]. .
--- NOTE | 2018-05-28 13:55 | XRay Report ---
INDICATION: aspiration PNA PROCEDURE: CHEST 2-VIEWS UPRIGHT (PA & LAT) Encounter: Initial COMPARISON: May 26, 2018 FINDINGS: Persistent infiltrate in the right lower lobe. New developing opacity in the left lower lobe. No pneumothorax. No significant pleural fluid. Heart size and mediastinal contours are stable. Pulmonary vascularity is normal. Impression: Lower lobe infiltrates possibly due to aspiration or pneumonia. .
[2018-05-28] MEDS: NS 1,000 ML IV SCH ×2 (16:08)
[2018-05-28] MEDS: LISINOPRIL 2.5 MG TABLET PO SCH (17:28)
[2018-05-28] MEDS: OLANZapine 10 MG TABLET PO SCH (20:49)
[2018-05-28] MEDS: MONTELUKAST 10 MG TABLET PO SCH (20:49)
[2018-05-29] MEDS: ZOLPIDEM 5 MG TABLET PO PRN (01:27)
[2018-05-29] MEDS: AMPICILLIN/SULBACTAM 3 G in NS 100 ML IV SCH ×4 (05:55→23:25)
[2018-05-29] MEDS: LEVOTHYROXINE 50 MCG TABLET PO SCH (06:17)
[2018-05-29] MEDS: NS 1,000 ML IV SCH (08:21)
[2018-05-29] MEDS: CETIRIZINE 10 MG TABLET PO SCH (08:22)
[2018-05-29] MEDS: LISINOPRIL 2.5 MG TABLET PO SCH (08:22)
[2018-05-29] MEDS: PROPRANOLOL 20 MG TABLET PO SCH (08:23)
[2018-05-29] MEDS: DIAZEPAM 2 MG TABLET PO SCH ×2 (08:23→21:11)
[2018-05-29] MEDS: PANTOPRAZOLE 40 MG INJECTION IVP SCH (08:25)
[2018-05-29] MEDS: ELUXADOLINE 100 MG PO SCH ×2 (08:40→21:12)
[2018-05-29] MEDS: LACTOBACILLUS (15B cfu) CAPSULE PO SCH (08:40)
[2018-05-29] MEDS ORDERED: FUROSEMIDE 20 MG/2 ML INJECTION IVP ONE (08:53)
--- NOTE | 2018-05-29 09:37 | XRay Report ---
Indication: pneumonia PROCEDURE: XR chest 2V: Encounter: Initial Comparison: 09/05/2018 Findings: The examination is expiratory nature which is causing some prominence of the interstitial markings. There is some somewhat discoid/linear atelectasis and/or scarring in both lung bases without definite pleural effusion. No cardiomegaly. No definite mediastinal or hilar adenopathy. The trachea is midline. No pneumothorax. No subdiaphragmatic free air. Impression: Expiratory exam with bibasilar somewhat linear/discoid atelectasis. No definite lobar consolidation or pleural effusion. .
--- NOTE | 2018-05-29 11:36 | Progress Note ---
- Date 05/29/18 Subjective: Tonia was seen while swallowing her morning pills. Her states that she is much more alert and having appropriate conversation today. He states that she started wheezing at 0500 this am after taking a drink of water. He doesn't think she choked but she spit it back up. She's been having trouble breathing since then and this am she was having conversational dyspnea, only able to answer in 1-word responses. She admits to feeling "a little" short of breath but denies chest pain. She denies n/v or abdominal pain. Objective Vital signs: Temperature 97.7 F 05/29/18 07:37 Pulse Rate 98 05/29/18 07:37 Respiratory Rate 25 H 05/29/18 08:23 Blood Pressure 152/93 H 05/29/18 07:37 Pulse Oximetry 96 05/29/18 09:31 Height/Weight/BMI: Height 1.42 m Weight 63 kg Body Mass Index 29.3 - Constitutional Present: mild distress, well nourished, well developed - Routine HEENT Exam Head: Present: normocephalic Eye: Present: PERRL. Absent: conjunctival icterus, scleral injection ENT: Present: mucous membranes moist, oropharynx clear - Routine Respiratory Exam Present: accessory muscle use, dyspnea, decreased breath sounds, prolonged expiratory phase, wheezes - Routine Cardiovascular Exam Present: RRR, S1, S2 - Routine Abdominal Exam Present: soft, normoactive bowel sounds, non distended, non tender - Routine Extremities Exam Present: edema (1+ BLE) - Routine Skin Exam Present: intact, dry, warm - Routine Neurological Exam Present: alert, oriented X3. Absent: facial asymmetry - Routine Psychiatric Exam Present: normal thought process, cooperative Results - Labs CBC & Chem 7: 05/29/18 03:54 05/29/18 03:54 Microbiology Results: Microbiology 05/26/18 08:59 Peripheral/Iv Start Blood Culture - Preliminary No Growth After 3 Days 05/26/18 08:48 Peripheral/Iv Start Blood Culture - Preliminary No Growth After 3 Days 05/26/18 12:15 Urine, Voided (Cc/notcc) Urine Culture - Final Mixed Bacterial Gayathri - ABG Interpretation ABG results: 05/28/18 09:43 ABG pH 7.448 ABG pCO2 31 L ABG pO2 73.2 L ABG HCO3 21.2 L ABG Total CO2 22.1 L ABG O2 Saturation 95.4 ABG Base Excess -2.4 L Assessment and Plan (1) Acute renal failure Current visit: Yes Status: Acute (2) Aspiration pneumonia Current visit: Yes Status: Acute Assessment and Plan: Assessment: Septic shock (SIRS: leukocytosis, tachy. Source: lungs. Lactate 3.1) Aspiration pneumonia-right lower lobe Nausea, vomiting, diarrhea- negative stool panel in ED ARF-POA Hypotension-POA Anemia - POA Hyperglycemia - POA, resolved Hypothyroidism Schizophrenia Irritable bowel syndrome GERD DJD of C-spine Hypertension Allergic rhinitis ? low functioning/?Mild MR Overweight -BMI 29 Hypomagnesemia-POA, resolved Altered mental status-05/27/18 Plan: Mental status much improved - hold off on psych consult for now. Head CT done yesterday was unremarkable. Vit B12 >1000. Increased wheezing & dyspnea; weight is up ~ 4 kg from admission; fluid status is 6L positive. Will stop IVF and give Lasix 40 mg IV x1. Re-evaluated by speech therapy; Jose changed her to thickened liquids and soft diet d/t degree of dyspnea. Renal status at baseline. K 3.6 - replace potassium with diuresis. Discussed with nursing, speech therapy, , and Dr. Rose. DVT Prophylaxis: SCD's GI Prophylaxis: Protonix Resuscitation Status: Full Code - Physician Narrative Physician: Lesley Rose MD Narrative: Date: 05/29/18 Time: 1640 I have independently evaluated and examined this patient. I reviewed the chart, the patient's history, and the LEAD SEWAGE PLANT OPERATOR/PA's documented findings as above. We discussed and formulated the assessment and plan as above with additions as below: Tonia was seated when seen this morning, her [id number] was at bedside. The patient was was vague in most of her responses indicating that she was sometimes short of breath, weak, and had some vomiting earlier; nursing reports she spit up a small amount of food while eating but didn't actually vomit. There 's been no recurrent diarrhea. Minor purse lipped expiration but respirations nonlabored Good airflow, crackles at the bases Soft-spoken but responding in one and 2 word phrases Abdomen soft, nontender Chest x-ray reviewed by myself demonstrating clear lung fuchs with minor atelectasis, poor inspiratory effort Continuing to make progress, suspect missing medications due to acute illness/ vomiting prior to admission contributed to episode of muteness. Renal function has completely normalized-discontinue [place]. Reassess respiratory status tomorrow prior to discussion of discharge. Can potentially convert to oral antibiotics tomorrow. Hospital Course Summary Disclaimer: The visit summary below is not to be considered part of the above Progress Note. Hospital Course: 05/26/18 Admit, IP. Stay expected to exceed 2 midnights given her septic shock and aspiration pneumonia. Patient was given IV Levaquin in ED for aspiration PNA. Start Unasyn (renal dosing) 1.5mg IV q 24 hrs IVF bolus completed in ER. Will continue maintenance IVF's. ST consult. Assuming she is cleared by ST, will continue her psych meds as reports pt does not do well if she goes w/o them. CXR from ER reviewed. Repeat in am. Check A1C given her hyperglycemia. Repeat CBC and BMP in am to follow blood counts, electrolytes and renal function. BC's, repeat lactate and UA are pending. Duonebs and acapella for pulmonary toilet. Zofran prn nausea. SCDs for DVT prophylaxis Pantoprazole IV for GI prophylaxis and abdominal pain CODE STATUS: full code PCP-Dr. Wilde 05/27/18 Blood pressure slightly elevated today, propranolol resumed this morning. Lisinopril on hold pending further improvement in renal function. Rate of IV fluids decreased, hemodynamically stable and renal function improving. Creatinine 3.3-2.4-1.9; continue to monitor. Pneumonia radiographically stable with hydration. Continue Unasyn-dose adjusted for improved renal function. Urine with mixed species-treatment not indicated. A1C 5.5; suspect hyperglycemia stress-induced. Fasting glucose this morning normal. In retrospect I believe low blood pressures and lactic acidosis or due to hypovolemia rather than septic shock. Altered mental status present today, exam nonfocal and patient follows commands appropriately. Ambulating per nursing report. Has not slept since admission. Reassess mental status tomorrow, if remains altered will image by CT head. Home psychiatric regimen continued. 05/28/18 Will obtain ABG now and place on C-pap to help with pursed lip breathing Patient remains non-verbal and will not follow commands today. Given decline in mental status will obtain CT of brain with and without contrast Use caution with PO intake - concern for dysphagia/aspiration Continue on Unasyn IV for treatment of pneumonia Renal function continues to improve- Damper Worker today 1.1 05/29/18 Mental status much improved - hold off on psych consult for now. Head CT done yesterday was unremarkable. Vit B12 >1000. Increased wheezing & dyspnea; weight is up ~ 4 kg from admission; fluid status is 6L positive. Will stop IVF and give Lasix 40 mg IV x1. Re-evaluated by speech therapy; Jose changed her to thickened liquids and soft diet d/t degree of dyspnea. Renal status at baseline. K 3.6 - replace potassium with diuresis.
[2018-05-29] MEDS ORDERED: FALL RISK - PHARMACY CONSULT MC ONE (16:13)
[2018-05-29] MEDS ORDERED: CYCLOBENZAPRINE 10 MG TABLET PO PRN (16:39)
[2018-05-29] MEDS: RANITIDINE 150 MG TABLET PO SCH (21:11)
[2018-05-29] MEDS: OLANZapine 10 MG TABLET PO SCH (21:12)
[2018-05-29] MEDS: MONTELUKAST 10 MG TABLET PO SCH (21:12)
--- NOTE | 2018-05-29 21:18 | Neuropsychiatric Consult ---
[facility] Date: 05/29/18 Requesting Physician: Saray Pulliam Reason for Consultation: Cognitive changes Start Time: 10:00 Stop Time: 10:40 History of Present Illness: Patient is a 67-year-old female who was admitted to [facility] on 05/26/18 with nausea, vomiting, diarrhea and weakness. Patient is being treated for the following by primary team: Septic shock (SIRS: leukocytosis, tachy. Source: lungs. Lactate 3.1) Aspiration pneumonia-right lower lobe Nausea, vomiting, diarrhea- negative stool panel in ED ARF-POA Hypotension-POA Anemia - POA Hyperglycemia - POA, resolved Hypothyroidism Irritable bowel syndrome GERD DJD of C-spine Hypertension Allergic rhinitis ? low functioning/?Mild MR Overweight -BMI 29 Hypomagnesemia-POA, resolved Head CT on 05/28/18 was unremarkable. During the course of this illness, patient's family reported increased confusion and cognitive decline. Her was specifically concerned that she stay on her psychiatric medications. Patient was previously hospitalized at [facility] for a short time in summer 2016. She has a hx of schizoaffective disorder and SLUMS on that visit was , which is consistent with major neurocognitive disorder. Her reported that patient became mute prior to that hospitalization and he was worried with her acute cognitive changes and decreased talking this time. On interview, patient is pleasant and cooperative, though somewhat confused. She is reportedly much more alert than yesterday. Her ioxqru-uc-yha is by her side. Patient is not fully oriented to situation. She is able to say that it is 2018 and who the president is. She is not sure why she is in the hospital. She describes her mood as "pretty good" and denies feeling depressed or having any morbid/suicidal thoughts. She states, "I don't know" when asked about possible AVH. Patient's asgybq-mx-hzi states that she still seems "a little confused" but is much closer to baseline than previously. Patient states that she sees Josephine Briscoe for psychiatric meds though I understand Josephine recently took a new position. [facility] Patient Stated Medical History Cataracts Yes Hypertension Yes Other Respiratory Yes: ALLERGIES Gastroesophageal Reflux Yes Disease Other GI Yes: IBS Other Musculoskeletal Yes: DEGENERATIVE JOINT DISEASE OF CERVICAL SPINE Schizophrenia Yes Clinic Medical History (Last Reviewed 05/26/18 @ 16:43 by Lesley Rose MD ) Hypothyroidism (Chronic Medical) Goiter (Chronic Medical) Schizophrenia (Chronic Medical) Lumbago (Chronic Medical) Irritable bowel syndrome (Chronic Medical) GERD (gastroesophageal reflux disease) (Chronic Medical) 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 Right total knee. . Colonoscopy-. Cataract extraction Family History: Family History (Last Reviewed 04/06/18 @ 10:42 by Elda Pradhan MD) Mother Cancer of breast Mother Cervical cancer Liver cancer High blood pressure Depression Cancer of spine Cancer of colon - Social History Smoking status: Never smoker Substance use type: does not use Alcohol intake frequency: does not drink Housing: house Household members: spouse Current occupational status: retired Current residence: Independent Living Review of Systems ROS unobtainable: due to mental status (responds "I don't know" to questions about symptoms) Mental Status Exam Vitals: Last Vital Signs Temp 99.0 F 05/29/18 15:49 Pulse 82 05/29/18 15:49 Resp 26 H 05/29/18 21:11 BP 160/95 H 05/29/18 15:49 Pulse Ox 93 05/29/18 19:24 Height: 1.42 m Weight: 63 kg - Mental Status Exam Muscle Strength/Tone: Weak Dressing: Casual Grooming: Fair Attitude: Cooperative Motor Activity: Retardation Eye Contact: Fair Speech: Slowed Volume: Soft Rhythm: Mumbled Sensory: Confused Orientation: Disoriented to time, Disoriented to situation, Oriented to person Mood: Euthymic Affect: Relaxed Rate of Thoughts: Delayed Thought Organization: [place], Confused Associations: Illogical (at times) Abstract Reasoning: Impaired, concrete Computation: Poor Computation Thought Content: Other (No abnormal thought content elicited other than confusion) Perception/Psychotic: Other (Patient states she does not know re: AVH, does not appear to be responding to internal stimuli) Language: Naming Impaired Fund of Knowledge: Poor fund of knowledge Memory: Poor-recent Suicidal Ideation: Denies Homicidal Ideation: Denies Insight: Impaired Judgement: Impaired Impulse Control: Fair - Laboratory Result Diagrams: 05/29/18 03:54 05/29/18 03:54 Laboratory Results - last 24 hr 05/28/18 05/29/1818 04:45 03:54 03:54 WBC 12.9 H RBC 2.94 L Hgb 9.1 L Hct 28.0 L MCV 95.2 MCH 31.0 MCHC 32.5 RDW Std Deviation 47.2 Plt Count 201 MPV 10.4 Immature Gran % (Auto) 0.9 H Neut % (Auto) 63.8 Lymph % (Auto) 20.7 L [place] % (Auto) 12.4 H Eos % (Auto) 1.7 Baso % (Auto) 0.5 Neut # (Auto) 8.2 H Lymph # (Auto) 2.7 [place] # (Auto) 1.6 H Eos # (Auto) 0.2 Baso # (Auto) 0.1 Abs Immat Gran (auto) 0.12 H Turbidity < 20 Sodium 143 Potassium 3.6 Chloride 112 H Carbon Dioxide 23 Anion Gap 8 BUN 10.0 Creatinine 0.8 D Estimated Creat Clear 46 GFR Calculation 72 BUN/Creatinine Ratio 13 Glucose 95 Calculated Osmolality 274 Calcium 7.8 L Icterus Index < 2 Vitamin B12 > 1000 H Specimen Hemolysis < 15 Assessment and Plan (1) Delirium Problem details: Due to multiple etiologies: Septic shock (SIRS: leukocytosis, tachy. Source: lungs. Lactate 3.1) Aspiration pneumonia-right lower lobe Nausea, vomiting, diarrhea- negative stool panel in ED ARF-POA Hypotension-POA Anemia - POA Hyperglycemia - POA, resolved Hypomagnesemia-POA, resolved Current visit: Yes Status: Acute (2) History of schizoaffective disorder Current visit: Yes Status: Acute (3) Neurocognitive disorder Problem details: Unspecified Major neurocognitive disorder suspected though patient may have low IQ at baseline Current visit: Yes Status: Acute Recommend the following: - Primary treatment for delirium is treatment of underlying medical condition and it appears cognition is improving with treatment. Discussed with family that confusion could last for several days-weeks but that it should slowly return to baseline. - Benzodiazepines, narcotics and anticholinergic medications can further predispose to or exacerbate delirium. Patient's has reported feeling that she does not do well without her current psychiatric medication regimen. Diazepam has a particularly long half-life and is generally not recommended in older people or those with neurocognitive disorders as it can accumulate and cause increased confusion. Lorazepam has a much shorter half-life if benzodiazepine is absolutely necessary. If is agreeable to med changes, then I can offer some guidance in how to change this medication. - Ambien and Flexeril could also be deliriogenic. - I would not recommend any other medication changes at this time but would recommend f/u with psychiatric provider soon after discharge. Patient may need referral for new provider if Josephine Briscoe is no longer available. Thank you for this consult, please contact me if you have any further questions.
[2018-05-30] MEDS: AMPICILLIN/SULBACTAM 3 G in NS 100 ML IV SCH ×2 (06:21→12:53)
[2018-05-30] MEDS: LEVOTHYROXINE 50 MCG TABLET PO SCH (06:22)
[2018-05-30] MEDS: LISINOPRIL 2.5 MG TABLET PO SCH (08:58)
[2018-05-30] MEDS: PROPRANOLOL 20 MG TABLET PO SCH (08:58)
[2018-05-30] MEDS: DIAZEPAM 2 MG TABLET PO SCH ×2 (08:58→20:36)
[2018-05-30] MEDS: LACTOBACILLUS (15B cfu) CAPSULE PO SCH (08:58)
[2018-05-30] MEDS: RANITIDINE 150 MG TABLET PO SCH ×2 (08:58→20:34)
[2018-05-30] MEDS: CETIRIZINE 10 MG TABLET PO SCH (08:58)
[2018-05-30] MEDS: ELUXADOLINE 100 MG PO SCH ×2 (08:59→20:35)
--- NOTE | 2018-05-30 09:38 | Progress Note ---
- Date 05/30/18 Subjective: Patient is seen while eating breakfast. Her is present and gives most of the history. She reports her breathing is better and she has minimal cough. reports she has been switched to thickened liquids and seems to be doing ok with it. No CP, f/c, nausea. Bowels are moving. reports catheter was removed yesterday. Nurse reports pt is independent with going to bathroom. Had a few episodes of urinary incontinence since having the catheter removed. Objective Vital signs: Temperature 97.7 F 05/30/18 07:21 Pulse Rate 85 05/30/18 08:01 Respiratory Rate 22 05/30/18 08:58 Blood Pressure 151/86 H 05/30/18 07:21 Pulse Oximetry 91 05/30/18 07:21 Height/Weight/BMI: Height 1.42 m Weight 60.1 kg Body Mass Index 29.3 - Constitutional Present: no acute distress, well nourished, well developed - Routine HEENT Exam Head: Present: normocephalic, atraumatic - Routine Respiratory Exam Present: crackles (R lower lobe, otherwise, CTAB). Absent: accessory muscle use , dyspnea, wheezes - Routine Cardiovascular Exam Present: RRR, no murmur - Routine Abdominal Exam Present: soft, non distended, non tender - Routine Extremities Exam Present: edema (trace), normal capillary refill - Routine Skin Exam Present: dry, warm - Routine Neurological Exam Present: alert, moving all extremities - Routine Lymphatic Exam Lymphatic: Absent: adenopathy - Routine Psychiatric Exam Present: normal affect, cooperative Results - Labs CBC & Chem 7: 05/30/18 03:59 05/30/18 03:59 Microbiology Results: Microbiology 05/26/18 08:59 Peripheral/Iv Start Blood Culture - Preliminary No Growth After 4 Days 05/26/18 08:48 Peripheral/Iv Start Blood Culture - Preliminary No Growth After 4 Days 05/26/18 12:15 Urine, Voided (Cc/notcc) Urine Culture - Final Mixed Bacterial Julia - ABG Interpretation ABG results: 05/28/18 09:43 ABG pH 7.448 ABG pCO2 31 L ABG pO2 73.2 L ABG HCO3 21.2 L ABG Total CO2 22.1 L ABG O2 Saturation 95.4 ABG Base Excess -2.4 L Assessment and Plan (1) Acute renal failure Current visit: Yes Status: Acute (2) Aspiration pneumonia Current visit: Yes Status: Acute Assessment and Plan: Assessment: Septic shock (SIRS: leukocytosis, tachy. Source: lungs. Lactate 3.1) Aspiration pneumonia-right lower lobe Nausea, vomiting, diarrhea- negative stool panel in ED - resolved ARF-POA - resolved Hypotension-POA -resolved Anemia - POA Hyperglycemia - POA, resolved Hypothyroidism Schizophrenia Irritable bowel syndrome GERD DJD of C-spine Hypertension Allergic rhinitis ? low functioning/?Mild MR Overweight -BMI 29 Hypomagnesemia-POA, resolved Altered mental status-05/27/18 - resolved Plan: Speech plans to reevaluate pt today to determine if swallow function is indicated. Diet modifications instituted yesterday (mech soft with ground meat and nectar thickened liquids) Weight down 3kg following diuresis. Breathing is improved. Dr Jose saw pt yesterday and thinks delirium is r/t underlying illness. She is willing to make some recommendations re: using lorazepam as opposed to diazepam and avoiding Flexeril and Ambien if pt/ are willing. Recommend OP psych f-u soon after D/C. Leukocytosis persists - has averaged ~12 since admission. Day #5 of Zosyn for aspiration PNA. Urine culture grew out mixed bacterial julia. DVT Prophylaxis: SCD's GI Prophylaxis: Protonix Resuscitation Status: Full Code - Physician Narrative Physician: Lesley Rose MD Narrative: Date: 05/30/18 Time: 1425 I have independently evaluated and examined this patient. I reviewed the chart, the patient's history, and the EMERGENCY PLANNER/PA's documented findings as above. We discussed and formulated the assessment and plan as above with additions as below: Tonia was seen this morning and reported she was having some diarrhea which she attributed to irritable bowel syndrome but denied having dyspnea. Speech therapy subsequently reevaluated and plans to proceed with modified barium swallow. NAD, alert, much more talkative today No pursed lip expiration present Respirations nonlabored, minimal crackles at the bases Regular rhythm Low-grade leukocytosis persists; Blood cultures negative at 4 days and chest x- ray improved yesterday. Convert to oral antibiotics with Augmentin for another 24 hours after which can discontinue. Modified barium swallow today. Dr. Jose's recommendations reviewed-will discuss further with patient's to determine if they wish to pursue additional medication modifications. Zonia started in hospital for insomnia, dose decreased to 2.5 mg prn. Flexeril discontinued. Hospital Course Summary Disclaimer: The visit summary below is not to be considered part of the above Progress Note. Hospital Course: 05/26/18 Admit, IP. Stay expected to exceed 2 midnights given her septic shock and aspiration pneumonia. Patient was given IV Levaquin in ED for aspiration PNA. Start Unasyn (renal dosing) 1.5mg IV q 24 hrs IVF bolus completed in ER. Will continue maintenance IVF's. ST consult. Assuming she is cleared by ST, will continue her psych meds as reports pt does not do well if she goes w/o them. CXR from ER reviewed. Repeat in am. Check A1C given her hyperglycemia. Repeat CBC and BMP in am to follow blood counts, electrolytes and renal function. BC's, repeat lactate and UA are pending. Duonebs and acapella for pulmonary toilet. Zofran prn nausea. SCDs for DVT prophylaxis Pantoprazole IV for GI prophylaxis and abdominal pain CODE STATUS: full code PCP-Dr. Wilde 05/27/18 Blood pressure slightly elevated today, propranolol resumed this morning. Lisinopril on hold pending further improvement in renal function. Rate of IV fluids decreased, hemodynamically stable and renal function improving. Creatinine 3.3-2.4-1.9; continue to monitor. Pneumonia radiographically stable with hydration. Continue Unasyn-dose adjusted for improved renal function. Urine with mixed species-treatment not indicated. A1C 5.5; suspect hyperglycemia stress-induced. Fasting glucose this morning normal. In retrospect I believe low blood pressures and lactic acidosis or due to hypovolemia rather than septic shock. Altered mental status present today, exam nonfocal and patient follows commands appropriately. Ambulating per nursing report. Has not slept since admission. Reassess mental status tomorrow, if remains altered will image by CT head. Home psychiatric regimen continued. 05/28/18 Will obtain ABG now and place on C-pap to help with pursed lip breathing Patient remains non-verbal and will not follow commands today. Given decline in mental status will obtain CT of brain with and without contrast Use caution with PO intake - concern for dysphagia/aspiration Continue on Unasyn IV for treatment of pneumonia Renal function continues to improve- Dispatcher Street Department today 1.1 05/29/18 Mental status much improved - hold off on psych consult for now. Head CT done yesterday was unremarkable. Vit B12 >1000. Increased wheezing & dyspnea; weight is up ~ 4 kg from admission; fluid status is 6L positive. Will stop IVF and give Lasix 40 mg IV x1. Re-evaluated by speech therapy; Jose changed her to thickened liquids and soft diet d/t degree of dyspnea. Renal status at baseline. K 3.6 - replace potassium with diuresis. 05/30/18 Speech plans to reevaluate pt today to determine if swallow function is indicated. Diet modifications instituted yesterday (mech soft with ground meat and nectar thickened liquids) Weight down 3kg following diuresis. Breathing is improved. Dr Jose saw pt yesterday and thinks delirium is r/t underlying illness. She is willing to make some recommendations re: using lorazepam as opposed to diazepam and avoiding Flexeril and Ambien if pt/ are willing. Recommend OP psych f-u soon after D/C. Leukocytosis persists - has averaged ~12 since admission. Day #5 of Zosyn for aspiration PNA. Urine culture grew out mixed bacterial julia.
[2018-05-30] MEDS: SALINE FLUSH 10ml SYRINGE IVF PRN (12:53)
[2018-05-30] MEDS ORDERED: ZOLPIDEM 5 MG TABLET PO PRN (14:43)
--- NOTE | 2018-05-30 15:48 | Fluoroscopy Report ---
Indication:oropharyngeal dysphagia Procedure:FL barium swallow modified MODIFIED BAR. SWALLOW STUDY: Technique: Videofluoroscopy was performed in conjunction with a cash posting representative from speech pathology and a separate report and recommendations will be provided. Varying gradations of barium from thin to solid were administered. Due to the patient's limited mobility, no AP imaging was obtained. Findings: There was no aspiration noted with any of the consistencies. A large amount of intraesophageal contrast was seen pooling up to the level of the C7 vertebrae. This could be due to esophageal dysmotility or esophageal stricture. An esophagram or upper endoscopy could be performed for further evaluation. Impression: 1. No aspiration seen. 2. Intraesophageal pooling of contrast to the level of C7. An esophagram or EGD could be performed for further evaluation. Please see the speech pathology report for additional details and recommendations. Fluoroscopy dose: 2.04 mGy (Cumulative air kerma) Dez Solo RPA/BENNIE performed this under my direct supervision. .
[2018-05-30] MEDS: ACETAMINOPHEN 325 MG TABLET PO PRN (16:41)
[2018-05-30] MEDS: AMOX/CLAV 875 MG/125 MG TABLET PO SCH (20:34)
[2018-05-30] MEDS: MONTELUKAST 10 MG TABLET PO SCH (20:34)
[2018-05-30] MEDS: OLANZapine 10 MG TABLET PO SCH (20:36)
[2018-05-31] MEDS: LEVOTHYROXINE 50 MCG TABLET PO SCH (06:11)
[2018-05-31] MEDS: SALINE FLUSH 10ml SYRINGE IVF PRN (09:35)
[2018-05-31] MEDS: DIAZEPAM 2 MG TABLET PO SCH (09:36)
[2018-05-31] MEDS: AMOX/CLAV 875 MG/125 MG TABLET PO SCH (09:36)
[2018-05-31] MEDS: LISINOPRIL 2.5 MG TABLET PO SCH (09:36)
[2018-05-31] MEDS: PROPRANOLOL 20 MG TABLET PO SCH (09:37)
[2018-05-31] MEDS: RANITIDINE 150 MG TABLET PO SCH (09:37)
[2018-05-31] MEDS: LACTOBACILLUS (15B cfu) CAPSULE PO SCH (09:37)
[2018-05-31] MEDS: CETIRIZINE 10 MG TABLET PO SCH (09:37)
[2018-05-31] MEDS: ELUXADOLINE 100 MG PO SCH (09:38)
[2018-05-31] MEDS ORDERED: ALBUTEROL/IPRATROPIUM 2.5mg-0.5mg/3ml NEB AEROSOL SCH (11:00)
[2018-05-31 12:01] VITALS: BP 142/86; PULSE 76; RESP 16; TEMP 96.3; O2SAT 95
--- NOTE | 2018-05-31 12:17 | Discharge Summary ---
Discharge Information Date of admission: 05/26/18 10:22 Anticipated date of discharge: 05/31/18 Attending Physician: Lesley Rose MD Primary care physician: Leesa Wilde DO Consults: Consulting Provider: Rosangela Jose Reason For Exam: mute/delirium - Discharge Diagnosis (1) Septic shock Status: Acute (2) Acute renal failure Status: Acute (3) Aspiration pneumonia Status: Acute Problems Reviewed?: Yes Septic shock/hypotension-POA Aspiration pneumonia-right lower lobe Nausea, vomiting, diarrhea ARF-POA - resolved Hypotension-POA -resolved Anemia - POA Hyperglycemia - POA, resolved Hypothyroidism Schizophrenia Irritable bowel syndrome GERD DJD of C-spine Hypertension Allergic rhinitis ? low functioning/?Mild MR Overweight -BMI 29 Hypomagnesemia-POA, resolved Altered mental status-05/27/18 - resolved - Procedures Procedures: Date of Exam: 05/30/18 Indication:oropharyngeal dysphagia Procedure:FL barium swallow modified MODIFIED BAR. SWALLOW STUDY: Technique: Videofluoroscopy was performed in conjunction with a procurement representative from speech pathology and a separate report and recommendations will be provided. Varying gradations of barium from thin to solid were administered. Due to the patient's limited mobility, no AP imaging was obtained. Findings: There was no aspiration noted with any of the consistencies. A large amount of intraesophageal contrast was seen pooling up to the level of the C7 vertebrae. This could be due to esophageal dysmotility or esophageal stricture. An esophagram or upper endoscopy could be performed for further evaluation. Impression: 1. No aspiration seen. 2. Intraesophageal pooling of contrast to the level of C7. An esophagram or EGD could be performed for further evaluation. - Laboratory Labs: Dismissal labs 05/31/18 05/31/18 04:44 04:44 WBC 15.2 H RBC 2.76 L Hgb 8.5 L Hct 26.2 L Plt Count 259 Sodium 140 Potassium 3.5 L Chloride 103 Carbon Dioxide 31 H BUN 8.0 Creatinine 0.8 Calcium 8.3 L Admission labs 05/26/18 05/26/18 05/26/18 08:48 08:48 18:42 WBC 12.1 H RBC 3.63 L Hgb 11.2 L Hct 36.6 Plt Count 224 Sodium 143 137 D Potassium 4.6 Chloride 109 H Carbon Dioxide 18 L BUN 56.0 H* Creatinine 2.4 H D Calcium 7.3 L D Iron studies 05/28/18 04:45 Iron 25 L TIBC 189 L % Saturation 13 A1C 05/26/18 13:09 Hemoglobin A1c 5.5 Laboratory Tests 05/27/18 05/28/18 09:07 04:45 Vitamin B12 > 1000 H TSH 1.00 - Microbiology Microbiology 05/26/18 Blood Culture - Final No Growth After 5 Days 05/26/18 12:15 Urine Culture - Final Mixed Bacterial Julia - Radiology Radiology: Date of Exam: 05/28/18 Indication: Mental status change PROCEDURE: CT head/brain wo/w con: FINDINGS: The ventricles are of normal size, shape, and contour for the patient' s age. The brainstem, cerebellum, and cerebral hemispheres have a normal morphology and CT attenuation. No hemorrhage, mass effect, mass lesions, or edema is evident. No areas of abnormal enhancement are seen. The visualized portions of the skull base, sinuses, and calvarium demonstrate no abnormality. IMPRESSION: Unremarkable head CT for the patient's age, both before and after contrast. Date of Exam: 05/29/18 Indication: pneumonia PROCEDURE: XR chest 2V: Findings: The examination is expiratory nature which is causing some prominence of the interstitial markings. There is some somewhat discoid/linear atelectasis and/or scarring in both lung bases without definite pleural effusion. No cardiomegaly. No definite mediastinal or hilar adenopathy. The trachea is midline. No pneumothorax. No subdiaphragmatic free air. Impression: Expiratory exam with bibasilar somewhat linear/discoid atelectasis. No definite lobar consolidation or pleural effusion. History of Present Illness HPI: Patient is a 67-year-old female who presented to the emergency room with nausea , vomiting, diarrhea, and weakness. Her "careworker" who "helps" her and her brought her in to the ER. Symptoms have been going on for the past 24 hours. Patient denies abdominal pain. She was brought in by her family, and on arrival to the emergency room she was found to be tachycardic and hypotensive with 85% O2 sat on room air. She fit criteria for severe sepsis and has received her 30 mL/kg bolus in the emergency room. Chest x-ray in the ED revealed right lower lobe pneumonia. She did not have a fever in the emergency room. Her average heart rate is in the 110's. Blood pressures recorded are 70 - 80s/50, but it was reported that her blood pressures improved following the fluid bolus. Her creatinine baseline is 1.1 and was 3.3 in the ER, with BUN of 59. White count 12.1, hemoglobin 11.2. Liver enzymes are normal, lipase normal, lactate was 3.1. She had a negative GI panel. Patient's thinks pt has had a cough for a few weeks. It is difficult to get a clear history as pt and tend to give different answers. wants to make sure pt gets her psych meds as he reports she doesn't do well if she isn't on them. Patient is seen in her room on admission. She is A&O but is slow in her answers and can't remember some things such as where her daughter lives. She can't remember the last time she ate or when she last vomited or had diarrhea. She reports she has had vomiting and diarrhea x 2-3 days but thinks it has been 24 hours. She usually has no problems swallowing but states that in the past she has choked on things. Objective Vital signs: Temperature 96.3 F L 05/31/18 12:00 Pulse Rate 76 05/31/18 12:00 Respiratory Rate 16 05/31/18 12:00 Blood Pressure 142/86 H 05/31/18 12:00 Pulse Oximetry 95 05/31/18 12:00 Height/Weight/BMI: Height 1.42 m Weight 60.7 kg Body Mass Index 29.3 - Constitutional Present: no acute distress, well nourished, well developed - Routine HEENT Exam Head: Present: normocephalic, atraumatic - Routine Respiratory Exam Present: CTA bilaterally. Absent: wheezes - Routine Cardiovascular Exam Present: RRR, no murmur - Routine Abdominal Exam Present: soft, non distended, non tender - Routine Extremities Exam Present: no edema, normal capillary refill - Routine Skin Exam Present: dry, warm - Routine Neurological Exam Present: alert, oriented X3 - Routine Lymphatic Exam Lymphatic: Absent: adenopathy - Routine Psychiatric Exam Present: normal affect, cooperative Hospital Course This is a general summary of the patient's hospital course. For more details refer to the complete medical record. Hospital course: 05/26/18 Admit, IP. Stay expected to exceed 2 midnights given her septic shock and aspiration pneumonia. Patient was given IV Levaquin in ED for aspiration PNA. Start Unasyn (renal dosing) 1.5mg IV q 24 hrs IVF bolus completed in ER. Will continue maintenance IVF's. ST consult. Assuming she is cleared by ST, will continue her psych meds as reports pt does not do well if she goes w/o them. CXR from ER reviewed. Repeat in am. Check A1C given her hyperglycemia. Repeat CBC and BMP in am to follow blood counts, electrolytes and renal function. BC's, repeat lactate and UA are pending. Duonebs and acapella for pulmonary toilet. Zofran prn nausea. SCDs for DVT prophylaxis Pantoprazole IV for GI prophylaxis and abdominal pain CODE STATUS: full code PCP-Dr. Wilde 05/27/18 Blood pressure slightly elevated today, propranolol resumed this morning. Lisinopril on hold pending further improvement in renal function. Rate of IV fluids decreased, hemodynamically stable and renal function improving. Creatinine 3.3-2.4-1.9; continue to monitor. Pneumonia radiographically stable with hydration. Continue Unasyn-dose adjusted for improved renal function. Urine with mixed species-treatment not indicated. A1C 5.5; suspect hyperglycemia stress-induced. Fasting glucose this morning normal. In retrospect I believe low blood pressures and lactic acidosis or due to hypovolemia rather than septic shock. Altered mental status present today, exam nonfocal and patient follows commands appropriately. Ambulating per nursing report. Has not slept since admission. Reassess mental status tomorrow, if remains altered will image by CT head. Home psychiatric regimen continued. 05/28/18 Will obtain ABG now and place on C-pap to help with pursed lip breathing Patient remains non-verbal and will not follow commands today. Given decline in mental status will obtain CT of brain with and without contrast Use caution with PO intake - concern for dysphagia/aspiration Continue on Unasyn IV for treatment of pneumonia Renal function continues to improve- Retort Cooler today 1.1 05/29/18 Mental status much improved - hold off on psych consult for now. Head CT done yesterday was unremarkable. Vit B12 >1000. Increased wheezing & dyspnea; weight is up ~ 4 kg from admission; fluid status is 6L positive. Will stop IVF and give Lasix 40 mg IV x1. Re-evaluated by speech therapy; Jose changed her to thickened liquids and soft diet d/t degree of dyspnea. Renal status at baseline. K 3.6 - replace potassium with diuresis. 05/30/18 Speech plans to reevaluate pt today to determine if swallow function is indicated. Diet modifications instituted yesterday (mech soft with ground meat and nectar thickened liquids) but returned to regular diet with thin liquids after modified barium swallow demonstrated no overt aspiration. Weight down 3kg following diuresis. Breathing is improved. Dr Jose saw pt yesterday and thinks delirium is r/t underlying illness. She is willing to make some recommendations re: using lorazepam as opposed to diazepam and avoiding Flexeril and Ambien if pt/ are willing. Recommend OP psych f-u soon after D/C. Leukocytosis persists - has averaged ~12 since admission. Day #5 of Zosyn for aspiration PNA. Urine culture grew out mixed bacterial julia. 05/31/[facility] She continues to have leukocytosis. Urinalysis was repeated and was negative. Respiratory symptoms have improved. Recommend repeat CBC in 2 days to follow white count. She was converted to oral Augmentin yesterday. She will complete her dosing today and needs no further antibiotics. Speech therapy recommends a soft diet with thin liquids with swallow precautions. Given her intraesophageal pooling of contrast at the level of C7 on modified barium swallow, an esophagram or EGD could be performed for further evaluation. Will leave this decision up to Dr. Wilde on an outpatient basis. Hospital follow-up with PCP in one week. Sooner for new or increasing symptoms. Discussed psych medications with Dr. Jose again today. She recommends continuing the diazepam as scheduled, and recommends discontinuing the Flexeril and Ambien. Patient will need psychiatric follow-up after discharge. Time spent with patient: discharge greater than 30 minutes Resuscitation Status: Full Code Discharge Plan - Discharge Disposition Discharge Date: 05/31/18 Disposition: 03 To SNU Not [facility] (SNF) *Condition: Stable Reason For Visit (Visit label in EMR): sepsis, aspiratio pneumonitis - Discharge Medications *Discharge Medications: New Albuterol/Ipratropium [Duoneb] 3 ml AEROSOL RTQID each Acetaminophen [Tylenol] 650 mg PO QID PRN tab PRN Reason: Discomfort Amoxicillin/Potassium Clav [Amox-Clav 875-125 mg Tablet] 875 mg PO Q12HR tab Continue Diazepam [Valium] 1 mg PO BID #30 tab OLANZapine [ZyPREXA] 10 mg PO HS Propranolol HCl 40 mg PO DAILY Eluxadoline [Viberzi] 100 mg PO BID Ranitidine [Zantac] 150 mg PO BID Cetirizine [Zyrtec] 10 mg PO DAILY Lactobacillus Acidophilus [Probiotic] 1 cap PO DAILY Ondansetron [Zofran Odt] 4 mg PO Q6HR PRN PRN Reason: Nausea Levothyroxine Sodium 50 mcg PO DAILY #0 Lisinopril [Prinivil] 2.5 mg PO DAILY #30 tab Montelukast [Singulair] 10 mg PO HS Discontinued Cyclobenzaprine [Flexeril] 10 mg PO BID PRN PRN Reason: Prn Orders - Discharge Packet/Instructions *Diet: regular diet - mechanical soft *Activity: As tolerated *Pain Management/Treatment: n/a *Wound Care: n/a *Expected Signs/Symptoms: You may continue to have some cough and fatigue but should gradually continue to improve *Notify Physician if: You develop fever or increasing shortness or breath *During Business Hours Contact: your nurse at [place] *After Business Hours Contact: your nurse at [place] *Pending Lab/Results: No Pending Lab - Referrals/Follow Up *Referrals/Follow Up: Leesa Wilde DO [Primary Care Provider] - 1 Week - Patient Handouts Patient Handouts: Aspiration Pneumonia (DC) - Dismissal Complete Discharge Instructions are:: Complete Physician Narrative - Narrative Physician: Lesley Rose MD Attestation Narrative: Date: 05/31/18 Time: 2129 I have independently evaluated and examined this patient. I reviewed the chart, the patient's history, and the AIRPLANE TESTER/PA's documented findings as above. We discussed and formulated the assessment and plan as above with additions as below: Tonia reports breathing comfortably today and no difficulty eating. She reports that she didn't get her sleeping medicines until 9:00 instead of 7:00 in the evening like she usually takes them so she didn't sleep as well as usual. NAD, alert, occasional pursed lip exploration again noted today Respirations nonlabored, good airflow, no wheezing; bowel sounds audible posteriorly in the lower lung fuchs--? Hiatal hernia Stable for discharge; the patient met criteria for septic shock on admission due to presence of pneumonia and persistent hypotension although in retrospect I think it's more likely that hypertension was due to volume depletion due to gastroenteritis prior to hospitalization. Hypotension and acute renal failure both resolved with fluids and pneumonia has improved significantly with treatment for aspiration. GI symptoms resolved within 24 hours of admission. Speech therapy has recommended consideration of EGD in the future based on findings on modified barium swallow.
--- NOTE | 2018-05-31 12:31 | Extended Care Facility Orders ---
Admission Orders Admit to:: [facility] Allergies/Adverse Reactions: Allergies dextromethorphan Allergy (Unknown, Verified 04/06/18 10:13) guaifenesin Allergy (Unknown, Verified 05/26/18 09:21) hydrocodone Allergy (Unknown, Verified 05/26/18 09:21) HIVES, SKIN RASH oxaprozin Allergy (Unknown, Verified 05/26/18 09:21) paromomycin Allergy (Unknown, Verified 05/26/18 09:21) potassium guaiacolsulfonate Allergy (Unknown, Verified 04/06/18 10:13) propoxyphene [From Darvocet-N] Allergy (Unknown, Verified 05/26/18 09:21) Admitting Diagnosis: sepsis, aspiratio pneumonitis Admitting Physician: Lesley Rose MD Attending Physician: Lesley Rose MD Code Status: Full Code Anticiapted Length of Stay: 30 days or less Rehab Potential: good Rehab Prognosis: good Diet: Regular Diet [DIET] Diet Modifications: Food Consistency:Mechanical soft Comment: ground meats 1) only eat/drink when sitting upright at 90 degrees 2) remain upright for at least 30 minutes after PO intake 3) small sips from straw, no large drinks. If an issue; remove straw 4) small bites, chew well before swallowing May use Facility Protocol or Standing Orders: Yes May have flu vaccine: Yes Evaluations/Treatment: PT, OT [facility] Certification: I certify that SNF services are required to be given on an inpatient basis because of the patient's need for [facility] care on a continuing basis for the condition(s) for which he/she received inpatient hospital services prior to his/her transfer to the SNF. SNF inpatient care is necessary for the following reasons: Indication for [facility]: Other (PT/OT) - Additional Information In Event of Arrest: Start CPR,call 911,send patient to the ER Resident is Aware of Diagnosis: Yes Referrals: Leesa Wilde DO [Primary Care Provider] - 1 Week Additional Orders: Last dose of Augmentin should be this evening. May DC routine albuterol/ipratropium breathing treatments and change to PRN after May 24. Recommend repeat CBC June 02 to follow WBC and hgb.
== END 2018-05-31 14:00 | DRG 871 ==
LOC: ED 08:17 → EDHOLD 10:22 → MED 10:54
PROVIDERS: ADMIT Internal Medicine; ATTEND Internal Medicine